=== PATIENT | female | born 1955 | race African-American/Black ===

== ENCOUNTER 2016-12-25 07:16 | Emergency (ER) | payer OTHER, MEDICARE ==
[~2016-12-25] VITALS: Ht 152.4 cm; Wt 98.4 kg
[~2016-12-25 07:16] MED LIST: ADVAIR DISKU 11 UNIT INH; ALBUTEROL0.09 MG/A1 INH; ALDACTONE50 MG PO; ASPIRIN325 M1 PO; BISACODYL10 MG PR; CARLSON VITAM2000 IU PO; CELLCEPT 250MG250 MG PO; COLACE100 MG PO; DILAUDID2 MG PO; FLEXERIL10 MG PO; FOLIC ACID 1 MG PO; GABAPENTIN100 MG PO; GAVILAX17 GM/Dose PO; HYDROCODONE/ACE1 TA1 PO; HYDROCORTISONE120 GM TOP; LASIX80 MG PO; LOPRESSOR50 MG PO; MAGNESIUM OXID400 MG PO; MIDODRINE HCL5 MG PO; MULTIVITAMIN1 TAB PO; NEXIUM 40MG40 MG PO; ONDANSETRON4 M1 PO; PREDNISONE10 MG PO; PROGRAF1 MG PO; PROMETHAZINE25 M1 PO; SENNA CON/DOCUS1 TAB PO; TOPROL XL 25MG25 MG PO; TOPROL XL25 MG PO; TRAMADOL HCL50 MG PO; VITAB121000 PO; ZYPREXA2.5 MG PO
[2016-12-25 07:19] VITALS: BP 192/106
--- NOTE | 2016-12-25 08:00 | ED EAR COMPLAINT ---
History of Present Illness General Chief Complaint: Ear Complaints Stated Complaint: RT EAR PAIN Source: patient Exam Limitations: no limitations Vital Signs & Intake/Output Vital Signs & Intake/Output ED Intake and Output 12/26 0000 12/25 1200 Intake Total 0 Output Total Balance 0 Intake, Oral 0 Patient 217 lb Weight Weight Reported by Patient Measurement Method Allergies Coded Allergies: midazolam (Severe, HALLUCINATIONS 12/25/16) diphenhydramine (Intermediate, ANXIETY 12/25/16) naproxen (Mild, GI 12/25/16) Reconcile Medications Albuterol Sulfate (Albuterol Sulfate Hfa) 90 MCG HFA.AER.AD 2 PUFF INH Q4-6 PRN PRN SHORTNESS OF BREATH (Reported) 90 MCG PER PUFF Bisacodyl 10 MG SUP 1 SUPP UT DAILY CONSTIPATION (Reported) Docusate Sodium (Colace) 100 MG CAPSULE 1 CAP PO DAILY CONSTIPATION (Reported ) Docusate Sodium/Senna (Senna S) 50 MG/8.6 MG TAB 1 TAB PO DAILY GI (Reported) Esomeprazole (Nexium) 40 MG CAPSULE.DR 1 CAP PO BID GI (Reported) Gabapentin 100 MG CAPSULE 1 CAP PO DAILY UNKNOWN (Reported) Hydrocodone/Acetaminophen (Hector 5-325 Tablet) 5 MG-325 MG TABLET 1-2 TAB PO Q6P PRN PAIN Hydrocortisone (Hydrocortisone 1% 120 Gm Cream) 1 % CREAM..G. 1 GISELLE TOP BID SKIN (Reported) apply to affected area(s) HYDROMORPHONE HCL (Dilaudid) 2 MG TAB 1 TAB PO 4 TIMES/DAY PRN PAIN FOR MODERATE TO SEVERE Magnesium Oxide 400 MG TABLET 1 TAB PO DAILY SUPPLEMENT (Reported) Metoprolol Succ XL (Toprol XL 25MG) 25 MG TAB 1 TAB PO DAILY BLOOD PRESSURE ( Reported) MIDODRINE HCL (Midodrine HCl) 5 MG TAB 3 TAB PO TID LIVER DISEASE Multivitamin (Multiple Vitamins) 1 EACH TABLET 1 TAB PO DAILY SUPPLEMENT ( Reported) Mycophenolate Mofetil (CellCept) 250 MG CAPSULE 2 CAP PO 4 TIMES/DAY TRANSPLANT (Reported) Olanzapine (Zyprexa) 2.5 MG TAB 1 TAB PO AT BEDTIME MENTAL HEALTH (Reported) Ondansetron (Ondansetron Odt) 4 MG TAB.RAPDIS 1 TAB PO Q8H PRN N/V (Reported) Polyethylene Glycol 3350 (Gavilax) 17 GRAM/DOSE POWDER 1 PAC PO DAILY GI ( Reported) Prednisone 10 MG TABLET 1 TAB PO DAILY UNKNOWN (Reported) Tacrolimus (Prograf) 1 MG CAP 5 CAP PO BID TRANSPLANT (Reported) Triage Note: PT TO ED FOR R EAR PAIN THAT STARTED THIS MORNING. DENIES DIZZINESS OR TINITUS. PT TOOK AMOXICILLIN THAT SHE HAD LEFT OVER IN THE HOUSE TO HELP. Triage Nurses Notes Reviewed? yes Onset: Abrupt Duration: hour(s):, constant, continues in ED, getting worse Severity: severe HPI: Patient presents for evaluation of severe constant throbbing right ear pain that began this morning (patient awoke with pain). She states that she has been suffering cold symptoms recently including a runny and stuffy nose. She denies any drainage from the ear or any trauma. She has had no fever. She has prior history of a tympanostomy tube placement. She tried a dose of amoxicillin she typically takes prior to dental procedures due to her history of liver and kidney transplant. Past History Travel History Traveled to [facility] past 21 day No Medical History Any Pertinent Medical History? see below for history Neurological: NEUROPATHY EENT: allergies, otitis media Cardiovascular: hypertension Respiratory: asthma Gastrointestinal: GERD, PEG TUBE Hepatic: cirrhosis, hepatitis C, LIVER TRANSPLANT - 12/2014 - [place], [place]. Renal: KIDNEY TRANSPLANT Musculoskeletal: chronic back pain, disk herniation, osteoarthritis Psychiatric: anxiety Endocrine: NONE Blood Disorders: pancytopenia Cancer(s): NONE TAP GRINDER/Reproductive: NONE History of MRSA: No History of VRE: No History of CDIFF: No Surgical History Surgical History: KIDNEY LIVER TRANSPLANT 11/21/14 in [facility] 12/2014. Psychosocial History Who do you live with Spouse Services at Home None What is your primary language Swedish Tobacco Use: Current Not Daily ETOH Use: denies use Illicit Drug Use: denies illicit drug use Family History Family History, If Any: BROTHER (oral cancer). MOTHER MOTHER (brain aneursym). FATHER (heart disease). Hx Contributory? No Review of Systems Review of Systems Constitutional: Reports: no symptoms. EENTM: Reports: see HPI. Respiratory: Reports: no symptoms. Cardiovascular: Reports: no symptoms. GI: Reports: no symptoms. Genitourinary: Reports: no symptoms. Musculoskeletal: Reports: no symptoms. Skin: Reports: no symptoms. Neurological/Psychological: Reports: no symptoms. Hematologic/Endocrine: Reports: no symptoms. Immunologic/Allergic: Reports: no symptoms. All Other Systems: Reviewed and Negative Physical Exam Physical Exam Ears: Right: Tympanic red, Tympanic bulging. Comments: Gen.: Well-nourished, well-developed, no acute respiratory distress. Moderate to severe distress secondary to ear pain. Head: Normocephalic, atraumatic. Eyes: Normal inspection bilaterally Ears: Normal inspection bilaterally, right ear: No tenderness with traction of the pinna, canal appears normal, right TM incompletely erythematous, dull and bulging, left TM: normal appearance Nose: Normal inspection Throat/mouth : Moist mucosa, no oral pharyngeal erythema Face: Mild tenderness over the right maxillary sinus to percussion, no apparent facial swelling Neck: Supple, full range of motion, no goiter Lungs: Quiet respirations Back: Normal range of motion Extremities: Normal range of motion grossly Neurologic: Cranial nerves grossly intact, speech is clear Skin: warm and dry Psychiatric: Anxious secondary to pain, cooperative, no apparent delusions or hallucinations Lymphatic: No cervical or periauricular lymphadenopathy Progress Differential Diagnoses I considered the following diagnoses in my evaluation of the patient: Otitis media, otitis externa, sinusitis, dental abscess, peritonsillar abscess, pharyngitis, viral syndrome. Given the appearance of the patient's tympanic membrane I suspect right otitis media. Patient has no fever lymphadenopathy or facial swelling to suggest locally invasive disease. Plan of Care: Current Medications Sig/Abram Start time Last Medication Dose Stop Time Status Admin Ketorolac 30 MG ONCE ONE 12/25 0800 UNVr 12/25 Tromethamine 12/25 08 0800 (Toradol) Morphine Sulfate 4 MG ONCE ONE 12/25 08 UNVr 12/25 (Morphine) 12/25 0801 0800 Initial ED EKG: none Departure Departure Disposition: HOME OR SELF CARE Condition: Stable Clinical Impression Primary Impression: Right otitis media Qualifiers: Otitis media type: unspecified Chronicity: unspecified Qualified Code: H66.91 - Otitis media, unspecified, right ear Secondary Impressions: Viral URI Referrals: MADALYN HARDY,MARCIANO Esquivel (PCP/Family) Additional Instructions: Amoxicillin as prescribed for your ear infection. Hector as needed for ear pain. Follow-up with Dr. BERGMAN tomorrow for reevaluation of her symptoms and further testing as needed. Return if any concerns or sudden worsening. Thank you for choosing the [facility] for your care. It was a pleasure to serve you today. Kristofer Madrid M.D. [facility] Departure Forms: Customer Survey General Discharge Information Prescriptions: Current Visit Scripts Hydrocodone/Acetaminophen (Hector 5-325 Tablet) 1-2 TAB PO Q6P PRN PAIN #20 TAB
[2016-12-25] MEDS ORDERED: NORCO 5-325 TA1 EACH PO (08:06)
== END 2016-12-25 08:15 ==
LOC: ERH 07:16
DX: H66.91 Otitis media, unspecified, right ear (principal); J06.9 Acute upper respiratory infection, unspecified; Z72.0 Tobacco use
CPT/HCPCS: 96372; J1885

== ENCOUNTER 2017-09-08 20:28 | Inpatient (IN) | payer OTHER, MEDICARE ==
[~2017-09-08] VITALS: Ht 162.6 cm; Wt 100.2 kg
[~2017-09-08 20:28] MED LIST changes: -CELLCEPT 250MG250 MG PO; +CELLCEPT250 MG PO; -GABAPENTIN100 MG PO; +GABAPENTIN600 M1 PO; +NORCO 5-325 TA1 EACH PO; -PREDNISONE10 MG PO; +PREDNISONE5 M1 PO
[2017-09-08 20:46] LABS: ABSOLUTE BASOPHIL COUNT 0 /CUMM (0.0-0.2); ABSOLUTE EOSINOPHIL COUNT 0.1 /CUMM (0.0-0.7); ABSOLUTE LYMPH COUNT 1.4 /CUMM (1.2-3.4); ABSOLUTE MONOCYTE COUNT 0.2 /CUMM (0.10-0.60); BASOPHIL % 0.6 % (0.0-2.0); EOSINOPHIL % 1.9 % (0-5); GRANULOCYTE % 64.1 % (42.2-75.2); HEMATOCRIT 36.4 % (37-47); MEAN CORPUSCULAR HGB 29.5 PG (27.0-31.0); MEAN CORPUSCULAR HGB CONC 32.5 G/DL (33.0-37.0); MEAN PLATELET VOLUME 7.8 FL (7.4-10.4); PLATELET COUNT 240 /CUMM (130-400); RBC DISTRIBUTION WIDTH 14.1 % (11.5-14.5); RED BLOOD CELL CT 3.99 /CUMM (4.20-5.40); WHITE BLOOD CELL COUNT 4.7 /CUMM (4.8-10.8)
--- NOTE | 2017-09-08 22:05 | ED CARDIAC/CP/PALPITATIONS ---
History of Present Illness General Chief Complaint: Palpitations Stated Complaint: AFIB Source: patient, family Exam Limitations: no limitations Allergies Coded Allergies: midazolam (Severe, HALLUCINATIONS 12/25/16) diphenhydramine (Intermediate, ANXIETY 12/25/16) naproxen (Mild, GI 12/25/16) grapefruit (MEDICATION INTERACTION 09/08/17) Reconcile Medications Albuterol Sulfate (Albuterol Sulfate Hfa) 90 MCG HFA.AER.AD 2 PUFF INH Q4-6 PRN PRN SHORTNESS OF BREATH (Reported) 90 MCG PER PUFF Bisacodyl 10 MG SUP 1 SUPP OK DAILY CONSTIPATION (Reported) Docusate Sodium (Colace) 100 MG CAPSULE 1 CAP PO DAILY CONSTIPATION (Reported ) Docusate Sodium/Senna (Senna S) 50 MG/8.6 MG TAB 1 TAB PO DAILY GI (Reported) Esomeprazole (Nexium) 40 MG CAPSULE.DR 1 CAP PO BID GI (Reported) Gabapentin 100 MG CAPSULE 1 CAP PO DAILY UNKNOWN (Reported) Hydrocodone/Acetaminophen (Benson 5-325 Tablet) 5 MG-325 MG TABLET 1-2 TAB PO Q6P PRN PAIN Hydrocortisone (Hydrocortisone 1% 120 Gm Cream) 1 % CREAM..G. 1 GISELLE TOP BID SKIN (Reported) apply to affected area(s) HYDROMORPHONE HCL (Dilaudid) 2 MG TAB 1 TAB PO 4 TIMES/DAY PRN PAIN FOR MODERATE TO SEVERE Magnesium Oxide 400 MG TABLET 1 TAB PO DAILY SUPPLEMENT (Reported) Metoprolol Succ XL (Toprol XL 25MG) 25 MG TAB 1 TAB PO DAILY BLOOD PRESSURE ( Reported) MIDODRINE HCL (Midodrine HCl) 5 MG TAB 3 TAB PO TID LIVER DISEASE Multivitamin (Multiple Vitamins) 1 EACH TABLET 1 TAB PO DAILY SUPPLEMENT ( Reported) Mycophenolate Mofetil (CellCept) 250 MG CAPSULE 2 CAP PO 4 TIMES/DAY TRANSPLANT (Reported) Olanzapine (Zyprexa) 2.5 MG TAB 1 TAB PO AT BEDTIME MENTAL HEALTH (Reported) Ondansetron (Ondansetron Odt) 4 MG TAB.RAPDIS 1 TAB PO Q8H PRN N/V (Reported) Polyethylene Glycol 3350 (Gavilax) 17 GRAM/DOSE POWDER 1 PAC PO DAILY GI ( Reported) Prednisone 10 MG TABLET 1 TAB PO DAILY UNKNOWN (Reported) Tacrolimus (Prograf) 1 MG CAP 5 CAP PO BID TRANSPLANT (Reported) Triage Note: PT TO ED C/O CENTER CHEST PAIN, NON RADIATING, WORSE WITH PALPATION, NO CHANGE WITH INSPIRATION, STARTED WHILE MAKING DINNER THIS EVENING. ALSO FELT "HEART PUNDING IN MY CHEST" PMH OF AFIB. HR 122 ON EKG. FEELS SOB WITH INSPIRATION. "I FELT DIZZY SO I HAD TO SIT DOWN" PMH OF KIDNEY AND LIVER TRANSPLANT. +SMOKER. "I TOOK A COUPLE SIPS OF MY 'S BEER THIS AFTERNOON" Triage Nurses Notes Reviewed? yes Onset: Abrupt Duration: minute(s): Timing: multiple episodes today Quality/Severity: pressure Location: central Radiation: no radiation Activities at Onset: activity Modifying Factors: Worsens With: exercise. Aspirin Today: 325 mg x 1 Associated Symptoms: dizziness, shortness of breath HPI: PATIENT IS A 62 Y/O FEMALE, PMH HEPATITIS C REQUIRING LIVER AND KIDNEY TRANSPLANT (2014), HTN, HLD, ASTHMA, AND OSTEOPOROSIS, PRESENTING FOR ONE MONTH OF DYSPNEA ON EXERTION AND CHEST PAIN. PATIENT STATES SHE IS ONLY ABLE TO WALK 15 FEET OR HALF A BLOCK BEFORE EXPERIENCING DYSPNEA AND CHEST PAIN. SHE STATES THAT THE PAIN IS LOCALIZED TO HER CHEST AND GOES AWAY AFTER TEN MINUTES OF REST. THERE IS DIZZINESS AND PALPATATIONS ASSOCIATED WITH THESE EPISODES WELL. SHE DOESNT TAKE ANY MEDICATION WHEN THESE SYMPTOMS OCCUR. SHE FEELS THESE SYMPTOMS HAVE BEEN WORSENING OVER THE LAST MONTH. PATIENT CURRENTLY REPORTS PALPITATIONS AND DENIES CHEST PAIN AND SOB AT THIS TIME. PATIENT HAD AN ECHO AND HOLTER MONITOR ONE MONTH AGO WHICH DIDNT REVEAL ANY ABNORMALITIES. SHE DENIES FEVER, CHILLS, HEADACHE, MYALGIA, N/V, DIARRHEA AND CONSTIPATION. (Suman Gillespie) Vital Signs & Intake/Output Vital Signs & Intake/Output Vital Signs Date Time Temp Pulse Resp B/P B/P Pulse O2 O2 Flow FiO2 Mean Ox Delivery Rate 09/08 2236 98.8 86 22 152/77 98 Room Air 09/08 2042 96.6 103 20 178/100 97 Room Air ([facility] HARDY,Kristofer Carrera) Past History Travel History Traveled to [place] past 21 day No Medical History Any Pertinent Medical History? see below for history Neurological: NEUROPATHY EENT: allergies, otitis media Cardiovascular: hypertension Respiratory: asthma Gastrointestinal: GERD, PEG TUBE Hepatic: cirrhosis, hepatitis C, LIVER TRANSPLANT - 12/2014 - [place]. Renal: KIDNEY TRANSPLANT Musculoskeletal: chronic back pain, disk herniation, osteoarthritis Psychiatric: anxiety Endocrine: NONE Blood Disorders: pancytopenia Cancer(s): NONE FINANCIAL INVESTMENT MANAGER/Reproductive: NONE History of MRSA: No History of VRE: No History of CDIFF: No Surgical History Surgical History: KIDNEY LIVER TRANSPLANT 11/21/14 in [facility] 12/2014. Psychosocial History Who do you live with Spouse Services at Home None What is your primary language Swedish Tobacco Use: Current Daily Use Daily Tobacco Use Amount/Type: =< 4 Cigarettes daily ETOH Use: occasional use Illicit Drug Use: denies illicit drug use Family History Comment: MULTIPLE FAMILY MEMBERS WITH A-FIB Family History, If Any: BROTHER (oral cancer). MOTHER MOTHER (brain aneursym). FATHER (heart disease). Hx Contributory? Yes (Suman Gillespie) Review of Systems Review of Systems Constitutional: Reports: no symptoms. EENTM: Reports: no symptoms. Respiratory: Reports: see HPI. Cardiovascular: Reports: see HPI. GI: Reports: no symptoms. Genitourinary: Reports: no symptoms. Musculoskeletal: Reports: no symptoms. Skin: Reports: no symptoms. Neurological/Psychological: Reports: no symptoms. Hematologic/Endocrine: Reports: no symptoms. Immunologic/Allergic: Reports: no symptoms. All Other Systems: Reviewed and Negative (Suman Gillespie) Physical Exam Physical Exam General Appearance: no apparent distress, alert, awake, comfortable, obese Head: atraumatic, normal appearance Eyes: Bilateral: normal appearance, EOMI. Ears, Nose, Throat: normal ENT inspection Neck: normal inspection Respiratory: normal breath sounds, chest non-tender, no respiratory distress, lungs clear Cardiovascular: irregularly irregular Peripheral Pulses: 2+ radial (R), 2+ radial (L) Rectal: normal exam, normal rectal tone, heme negative stool Neurologic/Psych: awake, alert, oriented x 3 Skin: intact, normal color, warm/dry Core Measures ACS in differential dx? Yes CVA/TIA Diagnosis No Sepsis Present: No Sepsis Focused Exam Completed? No (Suman Gillespie) Progress Differential Diagnosis: AMI, aortic dissection, atrial fibrillation, myocarditis , pancreatitis, pericarditis, pneumothorax, respiratory failure, unstable angina Initial ED EKG: rate (120), AFIB (Suman Gillespie) Plan of Care: Orders Procedure Date/time Status Heart Healthy Diet 09/09 B Active TROPONIN LEVEL 09/09 09 Active EKG 09/09 09 Active CBC WITHOUT DIFFERENTIAL 09/09 06 Active BASIC ELECTROLYTES PLUS BUN&CR 09/09 06 Active TROPONIN LEVEL 09/09 0300 Active EKG 09/09 0300 Active XRY-PORTABLE CHEST XRAY 09/08 225 Active Pathway - chart 09/08 2234 Active Patient Data 09/08 2234 Active Patient Data 09/08 2232 Active URINE DRUGS OF ABUSE 09/08 2225 Active ECHOCARDIOGRAM 09/08 2225 Active Add-on Test (ER Only) 09/08 2223 Active Misc Message 09/08 2214 Active ED Holding Orders 09/08 2214 Active Admit to inpatient 09/08 2214 Active Vital Signs 09/08 2214 Active Code Status 09/08 2214 Active Add-on Test (ER Only) 09/08 2211 Active Intake & Output 09/08 2056 Active Add-on Test (ER Only) 09/08 2048 Active THYROID STIMULATING HORMONE 09/08 2038 Active PARTIAL THROMBOPLASTIN TIME 09/08 2038 Complete PROTHROMBIN TIME 09/08 2038 Complete PHOSPHORUS 09/08 2038 Active FREE T4 09/08 2038 Active ETHANOL 09/08 2038 Active TROPONIN LEVEL 09/08 2036 Active MAGNESIUM 09/08 2036 Active COMPREHENSIVE METABOLIC PANEL 09/08 2036 Active CBC WITHOUT DIFFERENTIAL 09/08 2036 Complete EKG 09/08 2028 Active Pathway - chart 09/08 UNK Active House Staff 09/08 UNK Active VTE Mechanical Prophylaxis 09/08 UNK Active Vital Signs 09/08 UNK Active Telemetry/Blacking Wheel Tender 09/08 UNK Active Current Medications Sig/Abram Start time Last Medication Dose Stop Time Status Admin Magnesium Oxide 400 MG ONE ONE 09/08 2229 UNVr (Mag-Ox) 09/08 2230 Magnesium Sulfate 1 GM Q2H 09/08 2229 UNVr (Mag Sulfate in D5) 09/09 228 Dextrose/Water 100 ML (D5W) Heparin Sodium 25,000 UNIT Q24H 09/08 2214 AC (Porcine) (Heparin) Sodium Chloride 500 ML Laboratory Tests 09/08/172038: Anion Gap 14, Estimated GFR 50 L, BUN/Creatinine Ratio 26.4 H, Glucose 135 H, Calcium 10.0, Phosphorus 3.1, Magnesium 1.5 L, Total Bilirubin 0.4, AST 25, ALT 44, Alkaline Phosphatase 73, Troponin I 0.01, Total Protein 6.7, Albumin 4.6, Globulin 2.1, Albumin/Globulin Ratio 2.2, TSH Pending, Free T4 Pending, PT 11.0, INR 1.05, APTT 30, CBC w Diff MAN DIFF ORDERED, RBC 3.99 L, MCV 91.0, MCH 29.5, MCHC 32.5 L, RDW 14.1, MPV 7.8, Gran % 64.1, Lymphocytes % 29.4, Monocytes % 4.0, Eosinophils % 1.9, Basophils % 0.6, Absolute Granulocytes 3.0, Segmented Neutrophils 62, Band Neutrophils 5, Absolute Lymphocytes 1.4, Lymphocytes 26, Monocytes 2, Absolute Monocytes 0.2, Eosinophils 5, Absolute Eosinophils 0.1, Absolute Basophils 0, Platelet Estimate ADEQUATE, Normocytic RBCs VERIFIED, Normochromic RBCs VERIFIED, Serum Alcohol 24.0 ([facility] HARDY,Kristofer Carrera) Departure Departure Disposition: STILL A PATIENT Condition: Stable Clinical Impression Primary Impression: New onset a-fib Referrals: Shabnam HRADY,Junito Esquivel (PCP/Family) Departure Forms: Customer Survey General Discharge Information Admission Note Spoke With: Daya Osorio MD Documentation of Exam: Documentation of any treatments & extenuating circumstances including Concerns Regarding Discharge (functional status, medication knowledge or non-compliance, living conditions, etc.) that warrant an admission rather than observation: Patient will require rate control. Anticoagulants. Cardiac consultation. Repeat labs. Medically not safe for discharge. This is new onset A. fib. (Suman Gillespie) Critical Care Note Critical Care Note Critical Care Time: 30-74 min (35) (Suman Gillespie)
--- NOTE | 2017-09-08 22:25 | History & Physical ---
Kirby Bull MD 09/08/17 2224: General Information and HPI MD Statement: I have seen and personally examined HUGO WARREN and documented this H&P. The patient is a 62 year old F who presented with a patient stated chief complaint of [palpitations, chest pain, SOB]. 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 The symptoms began approximately 6 PM the evening of admission while the patient was cooking dinner. She describes the chest pain as a burning and pressure like pain that initially began as a moderate pain but quickly became severe as 9/10 in the substernal area radiating to the left side of the chest. Chest pain began after she started having palpitations and she also experienced shortness of breath and lightheadedness especially upon change of positions. She reports that for the past 3 months she has had intermittent episodes of palpitations approximately every other day lasting for minutes at a time and occasionally associated with milder chest pain, shortness of breath and dizziness. These episodes are usually associated with exertion and resolve upon rest. The patient has been worked up with her after school program coordinator at [place] with an echocardiogram and a Holter monitor both of which she states within normal limits. She endorses shortness of breath while lying flat but only sleeps on one pillow and attributes this shortness of breath to her asthma. Patient denies any nausea, vomiting, diaphoresis, loss of consciousness during this episode. Allergies/Medications Allergies: Coded Allergies: midazolam (Severe, HALLUCINATIONS 12/25/16) diphenhydramine (Intermediate, ANXIETY 12/25/16) naproxen (Mild, GI 12/25/16) grapefruit (MEDICATION INTERACTION 09/08/17) Home Med list Albuterol Sulfate (Albuterol Sulfate Hfa) 90 MCG HFA.AER.AD 2 PUFF INH Q4-6 PRN PRN SHORTNESS OF BREATH (Reported) 90 MCG PER PUFF Apixaban (Eliquis) 5 MG TABLET 5 MG PO BID heart .. Gabapentin 600 MG TABLET 2 TAB PO BID PRN NERVE PAIN (Reported) Gabapentin 600 MG TABLET 1 TAB PO ONCE PRN Nerve pain (Reported) Given in the afternoon Magnesium Oxide 400 MG TABLET 1 TAB PO DAILY SUPPLEMENT (Reported) Metoprolol Succ XL (Toprol Xl) 50 MG TAB 50 MG PO BID heart . Multivitamin (Multiple Vitamins) 1 EACH TABLET 1 TAB PO DAILY SUPPLEMENT ( Reported) Mycophenolate Mofetil (Cellcept) 250 MG CAPSULE 3 CAP PO BID IMMUNOSUPPRESSION (Reported) Polyethylene Glycol 3350 (Gavilax) 17 GRAM/DOSE POWDER 1 PAC PO DAILY GI ( Reported) Prednisone 5 MG TABLET 1 TAB PO DAILY IMMUNORSUPPRESSION (Reported) Tacrolimus 1 MG CAPSULE 3 CAP PO BID POST-TRANSPLANT (Reported) Past History Travel History Traveled to [facility] past 21 day No Medical History Neurological: NEUROPATHY EENT: allergies, otitis media Cardiovascular: hypertension Respiratory: asthma Gastrointestinal: GERD, PEG TUBE Hepatic: cirrhosis, hepatitis C, LIVER TRANSPLANT - 12/2014 - [place], [place]. Renal: KIDNEY TRANSPLANT Musculoskeletal: chronic back pain, disk herniation, osteoarthritis Psychiatric: anxiety Endocrine: NONE Blood Disorders: pancytopenia Cancer(s): NONE PILE DRIVER OPERATOR/Reproductive: NONE History of MRSA: No History of VRE: No History of CDIFF: No Surgical History Surgical History: KIDNEY LIVER TRANSPLANT 11/21/14 in [facility] 12/2014. Past Family/Social History Family History Relations & Conditions if any BROTHER (oral cancer). MOTHER MOTHER (brain aneursym). FATHER (heart disease). Psychosocial History Who Do You Live With? spouse, child Services at Home: daughter who is a nurse helps with her meds Primary Language: Latvian Smoking Status: Current Everyday Smoker (4-5 cigs/day for 30 years) ETOH Use: occasional use Illicit Drug Use: denies illicit drug use Living Will? unknown Power of Accounts Receivable Coordinator/HCP? unknown Functional Ability ADLs Independent: eating, toileting, bathing. Ambulation: independent IADLs Independent: shopping, housework, finances, food prep, telephone, transportation. Needs Assist: medication admin. Review of Systems Review of Systems Constitutional: Denies: chills, diaphoresis, fever, malaise. EENTM: Reports: blurred vision (3 week duration). Denies: double vision, visual changes. Cardiovascular: Reports: chest pain. Respiratory: Reports: orthopnea, short of breath. Denies: cough, sputum production, wheezing. GI: Denies: abdominal pain, constipation, diarrhea, melena, nausea, bloody stool, vomiting. Genitourinary: Reports: no symptoms. Musculoskeletal: Reports: joint pain (OA). Skin: Reports: no symptoms. Neurological/Psychological: Reports: tingling (hx of neuropathy ). Exam & Diagnostic Data Last 24 Hrs of Vital Signs/I&O Vital Signs Date Time Temp Pulse Resp B/P B/P Pulse O2 O2 Flow FiO2 Mean Ox Delivery Rate 09/09 0055 98.7 82 22 135/85 94 Room Air 09/08 2330 103 152/77 09/08 2237 98.8 86 22 152/77 98 Room Air 09/08 2042 96.6 103 20 178/100 97 Room Air Intake & Output 09/09 0800 09/09 0000 09/08 1600 Intake Total 0 Output Total Balance 0 Intake, Oral 0 Patient 221 lb Weight Physical Exam General Appearance Alert, Oriented X3, Cooperative, No Acute Distress Skin Temp/Moisture Exam: Warm/Dry Neck No JVD Cardiovascular Normal S1, Normal S2, irregularly irregular rhythm, tachycardic HR 110s, chest pain is reproducible with palpation Lungs Clear to Auscultation, Normal Air Movement Abdomen Normal Bowel Sounds, Soft, No Tenderness Neurological Normal Speech, Strength at 5/5 X4 Ext, Normal Tone, Sensation Intact, Cranial Nerves 3-12 NL Extremities No Clubbing, No Cyanosis, No Edema Vascular Pulses Symmetrical Last 24 Hrs of Labs/Bill: Laboratory Tests 09/08/172038: Anion Gap 14, Estimated GFR 50 L, BUN/Creatinine Ratio 26.4 H, Glucose 135 H, Calcium 10.0, Phosphorus 3.1, Magnesium 1.5 L, Total Bilirubin 0.4, AST 25, ALT 44, Alkaline Phosphatase 73, Troponin I 0.01, C-Reactive Prot, Quant < 0.5, Total Protein 6.7, Albumin 4.6, Globulin 2.1, Albumin/Globulin Ratio 2.2, Lipase 54, TSH 1.490, Free T4 0.86, PT 11.0, INR 1.05, APTT 30, CBC w Diff MAN DIFF ORDERED, RBC 3.99 L, MCV 91.0, MCH 29.5, MCHC 32.5 L, RDW 14.1, MPV 7.8, Gran % 64.1, Lymphocytes % 29.4, Monocytes % 4.0, Eosinophils % 1.9, Basophils % 0.6, Absolute Granulocytes 3.0, Segmented Neutrophils 62, Band Neutrophils 5, Absolute Lymphocytes 1.4, Lymphocytes 26, Monocytes 2, Absolute Monocytes 0.2, Eosinophils 5, Absolute Eosinophils 0.1, Absolute Basophils 0, Platelet Estimate ADEQUATE, Normocytic RBCs VERIFIED, Normochromic RBCs VERIFIED, ESR Westergren Pending, Serum Alcohol 24.0 Diagnostic Data EKG Results A fib, HR 112, QTc 433 CXR Results Unremarkable examination. Assessment/Plan Assessment: Patient is a 62-year-old -[place]ian female with a past medical history significant for 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 Patient was found to be in A. fib on EKG, chest pain is reproducible described as a burning, pressure-like pain. She has no signs of fluid overload including leg swelling, JVD, pulmonary vascular congestion. VS on admission: T 96.6, HR 103, RR 20, BP 178/100 (trended down to 135/85), saturating 97% on room air Labs on admission: WBC 4.7, H/H 11.8/36.4, platelet count 240, sodium 142, potassium 4.6, chloride 109, CO2 20, BUN 29, CR 1.1, glucose 135, magnesium 1.5, phosphorus 3.1, TSH 1.49, free T4 0.86, lipase 54, serum alcohol 24, trop < 0.01 Problem list #A. fib rate controlled, possibly related to holiday heart syndrome #Hypomagnesemia #History of renal and liver transplant on immunosuppression, nicotine dependence , asthma, HTN, hypothyroidism Plan -Admit to telemetry -Continuous telemetry monitoring -Echocardiogram -Patient initially requested Dr. Rowe for cardiology consult he was unable to be reached and Dr. Henson was called from ED -IV heparin, patient guaiac-negative in ED -Rule out for ACS with serial troponin and EKG -Magnesium repleted in ED, follow-up a.m. level -Orthostatic vital signs -Lipase and TSH/T4 within normal limits -Continue home medications including tacrolimus, mycophenolate, prednisone, metoprolol, Synthroid, tramadol, gabapentin -Heart healthy diet -DVT prophylaxis: IV heparin and ALPS -CODE STATUS: Full code As Ranked By This Provider Problem List: 1. New onset a-fib 2. Hypomagnesemia Core Measures/Misc (04/19) Acute Coronary Syndrome ACS Diagnosis: No Congestive Heart Failure Congestive Heart Failure Diagnosis No Cerebrovascular Accident CVA/TIA Diagnosis: No VTE (View Protocol) VTE Risk Factors Smoker No Mechanical VTE Prophylaxis d/t N/A MechProphylax Ordered No VTE Pharm Prophylaxis d/t NA PharmProphylax ordered Sepsis (View protocol) Sepsis Present: No Cirilo Cameron MD 09/08/17 2229: Resident Review Statement Resident Statement: examined this patient, discussed with internal control consultant, agreed with internal control consultant Other Findings: Ms Warren is a 62-year-old -[place]ian female with history of hypertension , asthma, stable GERD, chronic back pain, DJD, history of pancytopenia, smoker, with past history of hepatitis C cirrhosis (?resolution) presented to the emergency department on 09/08/2016 complaining of chest pain. Patient states that she was in her normal state of health until approximately 6 PM when she was cooking dinner developed her symptoms. Patient states that her chest pain was rated at a 9 out of 10 in severity and subsequently came down to an 8 out of 10 in severity. Prior to coming during this episode the patient's daughter (who is a nurse in [place]) checked her pulse and subsequently made the decision for her to be brought into the emergency department. Patient also states that over the last few months she has been experiencing intermittent palpitations. These episodes last minutes and are worse with exertion. She also takes endorses lightheadedness. States that she has followed up with a after school program coordinator at [place]. Patient did have a birthday and an anniversary yesterdayand had gone out to celebrate. Right coming in the patient also stated that she had a few sips of the 's beer. R: Patient denies any fever, chills, nausea, vomiting. She does endorse palpitations and lightheadedness. She also endorses joint pain. E: T:96.6. Respirations 20. Blood pressure 178/100. Heart rate 103. HEENT: Pupils equally round and reactive to light and accommodation. Nose is atraumatic. External auditory canal and Tympanic membranes clear. Pharynx normal. No swelling or edema. Facial mask on. Neck: Normal inspection, full range of motion. Back: Nontender Cardiovascular: Irregularly irregular rate. No murmurs rubs or gallops, normal JVP. Pain on chest wall palpation. Respiratory: Chest nontender. No respiratory distress. Abdomen: Soft, obese, nontender nondistended, no appreciable organomegaly. Normal bowel sounds. Extremity: No edema noted. Neuro: Alert oriented x3, motor sensory normal, cranial nerves II through XII grossly intact. Skin: No appreciable rash on exposed skin, skin is warm and dry. Psych: Mood and affect is normal, memory and judgment is normal. Appears slighty intoxicated, from the scent in the room. , daughter and Grandaughter were present during clinical encounter. L sodium 142, potassium 4.6, chloride 109,20. BUN 29. Creatinine 1.1. Initial Troponin WNL I SERVICE DATE: 09/08/17 EXAM TYPE: RAD - XRY-PORTABLE CHEST XRAY IMPRESSION: Unremarkable examination. EKG:Atrial Fibrillation Rate 122 A/P Ms Warren is a 62-year-old -[place]ian female with history of hypertension , asthma, stable GERD, chronic back pain, DJD, history of pancytopenia, smoker, with past history of hepatitis C cirrhosis (?resolution) presented to the emergency department on 09/08/2016 complaining of chest pain. In the ED, a Chest x-ray was done to rule out pneumonia. #New Onset A.Fib likely due to recent alcohol ingestion. #Chest Pain rule out ACS. #Hypertensive Urgency #History of Liver and Renal transplants #Hypomagensemia Admit the patient to telemetry for closer monitoring. Continue patient on IV heparin. Echocardiogram in a.m. Cardiology consultation with Dr. Rowe (patient request) Serial troponins and EKG. Top up electrolytes to ensure magnesium as a level of 2.0. Thyroid function studies. Lipase, ESR, CRP. Continue home medications particularly immunosuppressants. Patient is on a heart healthy diet. Full code DVT prophylaxis IV heparin and Alps. If pressures remain elevated, may consider addition of antihypertensive. Daya Osorio 09/09/17 0601: Attending Review Statement Attending Statement Attending MD Statement: examined this patient, discuss w/resident/PA/CATH LAB TECH, agreed w/resident/PA/CATH LAB TECH, reviewed EMR data (avail), reviewed images, amended to note Attending Assessment/Plan: CC: Chest pain, shortness of breath and palpitation PMH: Liver and kidney transplant secondary to hep C, L2 compression fracture, asthma, neuropathy, HLD, HTN Patient is a very good historian. She came to ER for acute onset chest pain/ chest tightness, shortness of breath and palpitation. Chest pain is left-sided, burning/pressure like, not radiating to jaw or shoulder, not associated with nausea, vomiting, diaphoresis. But it is associated with shortness of breath, most likely dyspnea on exertion. She felt severe palpitations and lightheadedness so she immediately came to ER. Denies any fever, chills, flulike symptoms, diarrhea, cough or expectoration but she drank alcohol yesterday for her 30th anniversary and birthday. Patient states that since last 3 months she has been noticing on and off palpitations as if something is flickering in her chest, has dyspnea on exertion and on and off chest pain on exertion, had been following with her after school program coordinator at [place], was investigated with 2-D echocardiogram in August (never heard back about the results assuming everything normal), Holter monitor for 24 hours without significant detected arrhythmia. Vitals: Afebrile, pulse ranging from 80 to 100s, RR 22, blood pressure 178/100 on arrival improved to 152/77, saturating 98% on room air On exam: A O 3, cooperative, no acute distress, neck supple, JVD normal, no lymphadenopathy, mucosa moist, no focal neurological deficit, right lower extremity mildly enlarged and left lower extremity, no obvious skin rashes or inflammation CVS: S1-S2, irregular, reproducible pain on chest. RS: Clear to auscultate bilaterally. Abdomen: Soft, NT, ND, bowel sounds present. Labs: WBC 4.7, hemoglobin 11.8, hematocrit 36.4, platelet 240, sodium 142, potassium 4.6, chloride 109, bicarbonate 20, anion gap 14, BUN 29, creatinine 1.1, LFT unremarkable, troponin 0.01, serum alcohol 24, INR 1.05 CXR:Unremarkable examination. ECG: A. fib, rate controlled Assessment and plan 62-year-old female with extensive past medical history presented in ER for acute worsening of shortness of breath, chest pain and palpitations. Since last 3 months she has been having on and off palpitations and was thoroughly investigated as mentioned above. But today in ER she is found to have new onset A. fib. Never had a history of CAD, heart failure. No recent infections but she had alcohol yesterday, which may have precipitated A. fib. Patient was given a dose of metoprolol in ER and was started on heparin. Cardiology was informed. Patient requests to be seen by Dr. Rowe. + New-onset A. fib + Hypomagnesemia + Liver and kidney transplant secondary to hep C, L2 compression fracture, asthma, neuropathy, HLD, HTN - Admit to telemetry - Continuous telemetry monitoring - Serial troponin and EKGs - Continue IV heparin - 2-D echo in a.m. - Obtain records from patient's after school program coordinator - Continue metoprolol - Check lipase - Cardiology consult - Continue all her home medications - Replace electrolytes - Continue all her home medications - Replace electrolytes
[2017-09-08 22:29] LABS: PTT 30 SEC (25-37)
[2017-09-08] MEDS ORDERED: PROGRAF1 M1 PO (23:09)
[2017-09-08] MEDS ORDERED: TOPROL XL25 M1 PO (23:17)
--- NOTE | 2017-09-09 00:05 | RADIOLOGY REPORT ---
EXAMINATION: XR PORTABLE CHEST CLINICAL INFORMATION: Shortness of breath. COMPARISON: Chest, 07/24/2017 TECHNIQUE: Portable frontal view of the chest was obtained. 11:29 PM FINDINGS: No significant abnormality is noted involving the heart, lungs, mediastinum, bony thorax or soft tissues. Orthopedic plate and screw at lower cervical spine. IMPRESSION: Unremarkable examination.
[2017-09-09] MEDS ORDERED: GABAPENTIN600 M1 PO (02:44)
[2017-09-09 05:37] LABS: ABSOLUTE BASOPHIL COUNT 0 /CUMM (0.0-0.2); ABSOLUTE EOSINOPHIL COUNT 0.1 /CUMM (0.0-0.7); ABSOLUTE GRANULOCYTE CT 2.6 /CUMM (1.4-6.5); ABSOLUTE LYMPH COUNT 1.9 /CUMM (1.2-3.4); ABSOLUTE MONOCYTE COUNT 0.3 /CUMM (0.10-0.60); BASOPHIL % 0.4 % (0.0-2.0); EOSINOPHIL % 2.4 % (0-5); GRANULOCYTE % 52.1 % (42.2-75.2); HEMATOCRIT 32.3 % (37-47); MEAN CORPUSCULAR HGB 29.5 PG (27.0-31.0); MEAN CORPUSCULAR HGB CONC 32.3 G/DL (33.0-37.0); MEAN CORPUSCULAR VOLUME 91.4 FL (81.0-99.0); MEAN PLATELET VOLUME 8.1 FL (7.4-10.4); PLATELET COUNT 212 /CUMM (130-400); RBC DISTRIBUTION WIDTH 14.5 % (11.5-14.5); RED BLOOD CELL CT 3.54 /CUMM (4.20-5.40)
--- NOTE | 2017-09-09 06:02 | Admission Certification ---
Admission Certification Certification Statement - As attending physician, I certify that at the time of - admission, based on clinical presentation, severity of - symptoms, need for further diagnostic testing and - therapeutic interventions, and risk of adverse outcomes - without in-hospital treatment, in my clinical assessment, - this patient requires an acute hospital stay for a minimum - of two nights or longer. I have also considered psychsocial - factors such as support system, advanced age, financial - issues, cognitive issues, and failed out-patient treatments, - past re-admission history, safety of patient, and lack of - compliance as applicable. Specific rationale supporting this admission is: New onset A. fib
[2017-09-09 06:46] LABS: PTT > 120 SEC (25-37)
[2017-09-09 07:08] VITALS: BP 130/62
--- NOTE | 2017-09-09 07:54 | PN- Housestaff ---
Sarai Thomson MD 09/09/17 0754: Subjective Follow-up For: Atrial fibrillation Complaints: no complaints Tele-Events Since Last Visit: Sinus rhythm 70 Subjective: Patient was seen and examined at bedside. No overnight events. No complaints. She denies chest pain, chest pressure, palpitation, nausea, vomiting. Review of Systems Constitutional: Reports: no symptoms. Cardiovascular: Reports: no symptoms. Respiratory: Reports: no symptoms. Gastrointestinal: Reports: no symptoms. Genitourinary: Reports: no symptoms. Musculoskeletal: Reports: no symptoms. Skin: Reports: no symptoms. Objective Last 24 Hrs of Vital Signs/I&O Vital Signs Date Time Temp Pulse Resp B/P B/P Pulse O2 O2 Flow FiO2 Mean Ox Delivery Rate 09/09 1120 98.1 80 16 136/78 09/09 1033 Room Air Room Air 09/09 0708 98.7 63 20 130/62 93 Room Air 09/09 0055 98.7 82 22 135/85 94 Room Air 09/08 2330 103 152/77 09/08 2237 98.8 86 22 152/77 98 Room Air 09/08 2043 96.6 103 20 178/100 97 Room Air Intake & Output 09/09 1600 09/09 0800 09/09 0000 Intake Total 358 0 Output Total Balance 358 0 Intake, IV 258 Intake, Oral 100 0 Patient 221 lb 221 lb Weight Weight Reported by Patient Measurement Method Physical Exam General Appearance: Alert, No Acute Distress Cardiovascular: Regular Rate, Normal S1, Normal S2, No Murmurs Lungs: Clear to Auscultation Abdomen: Normal Bowel Sounds, Soft, No Tenderness Neurological: Normal Speech, Strength at 5/5 X4 Ext, Normal Tone, Sensation Intact Extremities: No Edema, Normal Pulses Current Medications: Current Medications Sig/Abram Start time Last Medication Dose Route Stop Time Status Admin Albuterol Sulfate 2 PUF Q4-6 PRN PRN 09/08 2314 AC INH Gabapentin 600 MG Q8 PRN 09/08 231 AC PO Heparin Sodium 0 .STK-MED ONE 09/080 DC (Porcine) .ROUTE Heparin Sodium 0 .STK-MED ONE 09/08 2239 DC (Porcine) .ROUTE Heparin Sodium 4,000 UNIT ONCE ONE 09/08 2214 DC 09/08 (Porcine) IV 09/08 2216 2254 Heparin Sodium 25,000 UNIT Q24H 09/08 2214 AC 09/08 (Porcine) IV 2254 Sodium Chloride 500 ML Magnesium Oxide 400 MG DAILY 09/09 1000 AC 09/09 PO 1121 Magnesium Oxide 400 MG ONE ONE 09/08 2230 DC 09/08 PO 09/08 2231 2254 Magnesium Sulfate 1 GM Q2H 09/08 2230 DC 09/09 Dextrose/Water 100 ML IV 09/09 022 0057 Melatonin 9 MG QPM 09/09 0200 AC 09/09 PO 0200 Metoprolol Succinate 25 MG BID 09/09 1000 AC 09/09 PO 1120 Metoprolol Succinate 25 MG ONCE ONE 09/08 2214 DC 09/08 PO 09/08 2216 2330 Mycophenolate Mofetil 750 MG BID 09/09 1000 AC 09/09 PO 1122 Prednisone 5 MG DAILY 09/09 1000 AC 09/09 PO 1121 Tacrolimus 3 MG BID 09/09 1000 AC 09/09 PO 1122 Tramadol HCl 0 .STK-MED ONE 09/08 2350 DC PO Tramadol HCl 100 MG BID 09/08 2330 AC 09/09 PO 1119 Last 24 Hrs of Lab/Bill Results Last 24 Hrs of Labs/Mics: Laboratory Tests 09/09/17 1212: APTT Pending 09/09/17 1105: Troponin I < 0.01 09/09/17 0500: Anion Gap 10, Estimated GFR 56 L, BUN/Creatinine Ratio 30.0 H, Magnesium 2.4 H, APTT > 120 *H, CBC w Diff MAN DIFF ORDERED, RBC 3.54 L, MCV 91.4, MCH 29.5, MCHC 32.3 L, RDW 14.5, MPV 8.1, Gran % 52.1, Lymphocytes % 38.6, Monocytes % 6.5, Eosinophils % 2.4, Basophils % 0.4, Absolute Granulocytes 2.6, Segmented Neutrophils 42 L, Band Neutrophils 1, Absolute Lymphocytes 1.9, Lymphocytes 50, Monocytes 4, Absolute Monocytes 0.3, Eosinophils 3, Absolute Eosinophils 0.1, Absolute Basophils 0, Platelet Estimate ADEQUATE, Normocytic RBCs VERIFIED, Normochromic RBCs VERIFIED 09/09/17 0330: APTT Cancelled 09/09/17 0245: Troponin I 0.02 09/08/172038: Anion Gap 14, Estimated GFR 50 L, BUN/Creatinine Ratio 26.4 H, Glucose 135 H, Calcium 10.0, Phosphorus 3.1, Magnesium 1.5 L, Total Bilirubin 0.4, AST 25, ALT 44, Alkaline Phosphatase 73, Troponin I 0.01, C-Reactive Prot, Quant < 0.5, Total Protein 6.7, Albumin 4.6, Globulin 2.1, Albumin/Globulin Ratio 2.2, Lipase 54, TSH 1.490, Free T4 0.86, PT 11.0, INR 1.05, APTT 30, CBC w Diff MAN DIFF ORDERED, RBC 3.99 L, MCV 91.0, MCH 29.5, MCHC 32.5 L, RDW 14.1, MPV 7.8, Gran % 64.1, Lymphocytes % 29.4, Monocytes % 4.0, Eosinophils % 1.9, Basophils % 0.6, Absolute Granulocytes 3.0, Segmented Neutrophils 62, Band Neutrophils 5, Absolute Lymphocytes 1.4, Lymphocytes 26, Monocytes 2, Absolute Monocytes 0.2, Eosinophils 5, Absolute Eosinophils 0.1, Absolute Basophils 0, Platelet Estimate ADEQUATE, Normocytic RBCs VERIFIED, Normochromic RBCs VERIFIED, ESR Westergren 8 , Serum Alcohol 24.0 Assessment/Plan Assessment: Patient is a 62-year-old -Nigerian female with a past medical history significant for 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 Patient was found to be in A. fib on EKG, chest pain is reproducible described as a burning, pressure-like pain. She has no signs of fluid overload including leg swelling, JVD, pulmonary vascular congestion. Problem list #A. 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 Patient is on IV heparin and we will continue the same. We will get an cardiology consult. Patient is requesting to be seen by Kory Rowe MD. Hypomagnesemia had a magnesium level of 1.3 upon admission and it was replaced. Repeat magnesium is 2.4. Renal and liver transplant in 2015 We will continue tacrolimus, mycophenolate mofetil and steroids. Nicotine dependence, asthma, hypertension We will continue her home medication metoprolol XL, gabapentin. If needed we will start her on nicotine patch. We will continue albuterol for asthma. Diet-heart healthy diet Plan-she will be followed by cardiology today. Problem List: 1. New onset a-fib Pain Ratin Pain Location: none Pain Goal: Remain pain free Pain Plan: tylenol Tomorrow's Labs & Rationales: bep,mag Shefali HARDY,Kavin 09/09/17 1426: Attending MD Review Statement Attending Statement Attending MD Statement: examined this patient, discuss w/resident/PA/WHEAT WASHER, agreed w/resident/PA/WHEAT WASHER, reviewed EMR data (avail), discussed with nursing, discussed with case mgmt, amended to note Attending Assessment/Plan: Patient seen and examined. Resting comfortably and not in any acute distress. She had presented with complaints of chest pain or shortness of breath. She was found to be in atrial fibrillation with rapid ventricular response. She has currently converted back to normal sinus rhythm. She is asymptomatic. She is hemodynamically stable. Echocardiogram shows normal ejection fraction and normal diastolic function. Cardiology follow-up appreciated. We will transition patient to Eliquis. We will continue rate control therapy with metoprolol as recommended. Continue Tacrolimus and CellCept. Patient remains in normal sinus rhythm overnight she will be discharged home with outpatient cardiology follow-up.
--- NOTE | 2017-09-09 13:35 | Cons- Cardiology ---
General Information and HPI Consulting Request Date of Consult: 09/09/17 Requested By: Kavin Meehan MD Reason for Consult: Paroxysmal atrial fibrillation. Source of Information: patient, old records Exam Limitations: no limitations History of Present Illness: Hugo Warren is a 62-year-old -Sudanese female, a retired [employer] employee. She has a history of hypertension on beta blockers alone. She has a history of liver and kidney transplant in 2015 for hepatitis C. She's had no cardiac issues. A few months ago she had an episode of palpitations which lasted about one hour. She saw her regular accounting associate, Dr. Ibrahima Doll in [place], who did an echocardiogram and a Holter on her and apparently there were no major adverse findings. She was then well until last night about 6:00, when she was cooking she developed shortness of breath and palpitations. These did not resolve within an hour or 2 and her daughter who is a nurse brought her to the emergency department, where she was found to be in atrial fibrillation with a rate around 122. She was started on IV heparin and transferred to the floor. Around 2 AM she apparently converted to sinus rhythm and has been in sinus rhythm since that time. Her EKG now shows just some nonspecific ST-T wave abnormalities. The patient does not describe exertional chest pain. She does have some mild dyspnea on more than usual exertion. She has no orthopnea, PND, dizziness, syncope, edema. Her home medications include only metoprolol from a cardiac standpoint. She is on immunosuppressive therapy for her transplants including low-dose prednisone. Allergies/Medications Allergies: Coded Allergies: midazolam (Severe, HALLUCINATIONS 12/25/16) diphenhydramine (Intermediate, ANXIETY 12/25/16) naproxen (Mild, GI 12/25/16) grapefruit (MEDICATION INTERACTION 09/08/17) Home Med List: Albuterol Sulfate (Albuterol Sulfate Hfa) 90 MCG HFA.AER.AD 2 PUFF INH Q4-6 PRN PRN SHORTNESS OF BREATH (Reported) 90 MCG PER PUFF Apixaban (Eliquis) 5 MG TABLET 5 MG PO BID heart . Gabapentin 600 MG TABLET 2 TAB PO BID PRN NERVE PAIN (Reported) Gabapentin 600 MG TABLET 1 TAB PO ONCE PRN Nerve pain (Reported) Given in the afternoon Magnesium Oxide 400 MG TABLET 1 TAB PO DAILY SUPPLEMENT (Reported) Metoprolol Succ XL (Toprol Xl) 50 MG TAB 50 MG PO BID heart . Multivitamin (Multiple Vitamins) 1 EACH TABLET 1 TAB PO DAILY SUPPLEMENT ( Reported) Mycophenolate Mofetil (Cellcept) 250 MG CAPSULE 3 CAP PO BID IMMUNOSUPPRESSION (Reported) Polyethylene Glycol 3350 (Gavilax) 17 GRAM/DOSE POWDER 1 PAC PO DAILY GI ( Reported) Prednisone 5 MG TABLET 1 TAB PO DAILY IMMUNORSUPPRESSION (Reported) Tacrolimus 1 MG CAPSULE 3 CAP PO BID POST-TRANSPLANT (Reported) Current Medications: Current Medications Sig/Abram Start time Last Medication Dose Route Stop Time Status Admin Albuterol Sulfate 2 PUF Q4-6 PRN PRN 09/08 2315 AC INH Gabapentin 600 MG Q8 PRN 09/08 2315 AC PO Heparin Sodium 0 .STK-MED ONE 09/08 2240 DC (Porcine) .ROUTE Heparin Sodium 0 .STK-MED ONE 09/08 2239 DC (Porcine) .ROUTE Heparin Sodium 4,000 UNIT ONCE ONE 09/08 2214 DC 09/08 (Porcine) IV 09/08 221 2254 Heparin Sodium 25,000 UNIT Q24H 09/08 2215 AC 09/08 (Porcine) IV 2254 Sodium Chloride 500 ML Magnesium Oxide 400 MG DAILY 09/09 1000 AC 09/09 PO 1121 Magnesium Oxide 400 MG ONE ONE 09/08 2230 DC 09/08 PO 09/08 2231 2254 Magnesium Sulfate 1 GM Q2H 09/08 2230 DC 09/09 Dextrose/Water 100 ML IV 09/09 0229 0057 Melatonin 9 MG QPM 09/09 0200 AC 09/09 PO 0200 Metoprolol Succinate 25 MG BID 09/09 1000 AC 09/09 PO 1120 Metoprolol Succinate 25 MG ONCE ONE 09/08 2215 DC 09/08 PO 09/08 2216 2330 Mycophenolate Mofetil 750 MG BID 09/09 1000 AC 09/09 PO 1122 Prednisone 5 MG DAILY 09/09 1000 AC 09/09 PO 1121 Tacrolimus 3 MG BID 09/09 1000 AC 09/09 PO 1122 Tramadol HCl 0 .STK-MED ONE 09/08 2350 DC PO Tramadol HCl 100 MG BID 09/08 2330 AC 09/09 PO 1119 Review of Systems Review of Systems: She has no other complaints in the review of systems Past History Travel History Traveled to [place] past 21 day No Medical History Blood Transfusion Hx: Yes Neurological: NEUROPATHY EENT: allergies, otitis media Cardiovascular: hypertension Respiratory: asthma Gastrointestinal: GERD, PEG TUBE Hepatic: cirrhosis, hepatitis C, LIVER TRANSPLANT - 12/2014 - [place]. Renal: KIDNEY TRANSPLANT Musculoskeletal: chronic back pain, disk herniation, osteoarthritis Psychiatric: anxiety Endocrine: NONE Blood Disorders: pancytopenia Cancer(s): NONE STITCHING DEPARTMENT SUPERVISOR/Reproductive: NONE Surgical History Surgical History: KIDNEY LIVER TRANSPLANT 11/21/14 in [facility] 12/2014. Family History Relations & Conditions If Any: BROTHER (oral cancer). MOTHER MOTHER (brain aneursym). FATHER (heart disease). Psychosocial History Where Do You Live? Home Who Do You Live With? spouse, child Services at Home: daughter who is a nurse helps with her meds Primary Language: Colombian Smoking Status: Current Everyday Smoker (4-5 cigs/day for 30 years) ETOH Use: occasional use Illicit Drug Use: denies illicit drug use Living Will? unknown Power of Product Safety Manager/HCP? unknown Functional Ability ADLs Independent: eating, toileting, bathing. Ambulation: independent IADLs Independent: shopping, housework, finances, food prep, telephone, transportation. Needs Assist: medication admin. Exam & Diagnostic Data Vital Signs and I&O Vital Signs Date Time Temp Pulse Resp B/P B/P Pulse O2 O2 Flow FiO2 Mean Ox Delivery Rate 09/09 1120 98.1 80 16 136/78 09/09 1033 Room Air Room Air 09/09 0708 98.7 63 20 130/62 93 Room Air 09/09 0055 98.7 82 22 135/85 94 Room Air 09/08 2330 103 152/77 09/08 2237 98.8 86 22 152/77 98 Room Air 09/08 2043 96.6 103 20 178/100 97 Room Air Intake & Output 09/09 1600 09/09 0809/09 0000 09/08 1600 09/08 0800 09/08 0000 Intake Total 358 0 Output Total Balance 358 0 Intake, IV 258 Intake, Oral 100 0 Patient 221 lb 221 lb Weight Weight Reported by Patient Measurement Method Physical Exam: This is an obese middle-aged female in no acute distress HEENT exam is normal Neck veins not distended Carotids normal without bruits Chest clear Heart regular rhythm, grade 2 to 3/6 systolic ejection murmur at the base radiating to the neck Abdomen benign Extremities good pulses no edema Labs/Bill Results: Laboratory Tests 09/09 09/09 09/09 1212 1105 0500 Chemistry Sodium (137 - 145 mmol/L) 140 Potassium (3.5 - 5.1 mmol/L) 4.2 Chloride (98 - 107 mmol/L) 108 H Carbon Dioxide (22 - 30 mmol/L) 22 Anion Gap (5 - 16) 10 BUN (7 - 17 mg/dL) 30 H Creatinine (0.5 - 1.0 mg/dL) 1.0 Estimated GFR (>60 ml/min) 56 L BUN/Creatinine Ratio (7 - 25 %) 30.0 H Magnesium (1.6 - 2.3 mg/dL) 2.4 H Troponin I (< 0.11 ng/ml) < 0.01 Coagulation APTT (25 - 37 SEC) Pending > 120 *H Hematology CBC w Diff MAN DIFF ORDERED WBC (4.8 - 10.8 /CUMM) 5.0 RBC (4.20 - 5.40 /CUMM) 3.54 L Hgb (12.0 - 16.0 G/DL) 10.4 L Hct (37 - 47 %) 32.3 L MCV (81.0 - 99.0 FL) 91.4 MCH (27.0 - 31.0 PG) 29.5 MCHC (33.0 - 37.0 G/DL) 32.3 L RDW (11.5 - 14.5 %) 14.5 Plt Count (130 - 400 /CUMM) 212 MPV (7.4 - 10.4 FL) 8.1 Gran % (42.2 - 75.2 %) 52.1 Lymphocytes % (20.5 - 51.1 %) 38.6 Monocytes % (1.7 - 9.3 %) 6.5 Eosinophils % (0 - 5 %) 2.4 Basophils % (0.0 - 2.0 %) 0.4 Absolute Granulocytes (1.4 - 6.5 /CUMM) 2.6 Segmented Neutrophils (42.2 - 75.2 %) 42 L Band Neutrophils (0.0 - 5.0 %) 1 Absolute Lymphocytes (1.2 - 3.4 /CUMM) 1.9 Lymphocytes (20.5 - 51.1 %) 50 Monocytes (1.7 - 9.3 %) 4 Absolute Monocytes (0.10 - 0.60 /CUMM) 0.3 Eosinophils (0 - 5.0 %) 3 Absolute Eosinophils (0.0 - 0.7 /CUMM) 0.1 Absolute Basophils (0.0 - 0.2 /CUMM) 0 Platelet Estimate (ADEQUATE) ADEQUATE Normocytic RBCs VERIFIED Normochromic RBCs VERIFIED 09/09 09/09 09/08 0330 9568 7 Chemistry Sodium (137 - 145 mmol/L) 142 Potassium (3.5 - 5.1 mmol/L) 4.6 Chloride (98 - 107 mmol/L) 109 H Carbon Dioxide (22 - 30 mmol/L) 20 L Anion Gap (5 - 16) 14 BUN (7 - 17 mg/dL) 29 H Creatinine (0.5 - 1.0 mg/dL) 1.1 H Estimated GFR (>60 ml/min) 50 L BUN/Creatinine Ratio (7 - 25 %) 26.4 H Glucose (65 - 99 mg/dL) 135 H Calcium (8.4 - 10.2 mg/dL) 10.0 Phosphorus (2.5 - 4.5 mg/dL) 3.1 Magnesium (1.6 - 2.3 mg/dL) 1.5 L Total Bilirubin (0.2 - 1.3 mg/dL) 0.4 AST (14 - 36 U/L) 25 ALT (9 - 52 U/L) 44 Alkaline Phosphatase (<127 U/L) 73 Troponin I (< 0.11 ng/ml) 0.02 0.01 C-Reactive Prot, Quant (<1.0 mg/dL) < 0.5 Total Protein (6.3 - 8.2 g/dL) 6.7 Albumin (3.5 - 5.0 g/dL) 4.6 Globulin (1.9 - 4.2 gm/dL) 2.1 Albumin/Globulin Ratio (1.1 - 2.2 %) 2.2 Lipase (23 - 300 U/L) 54 TSH (0.270 - 4.200 uIU/mL) 1.490 Free T4 (0.78 - 2.44 ng/dL) 0.86 Coagulation PT (9.4 - 12.5 SEC) 11.0 INR (0.90 - 1.19) 1.05 APTT (25 - 37 SEC) Cancelled 30 Hematology CBC w Diff MAN DIFF ORDERED WBC (4.8 - 10.8 /CUMM) 4.7 L RBC (4.20 - 5.40 /CUMM) 3.99 L Hgb (12.0 - 16.0 G/DL) 11.8 L Hct (37 - 47 %) 36.4 L MCV (81.0 - 99.0 FL) 91.0 MCH (27.0 - 31.0 PG) 29.5 MCHC (33.0 - 37.0 G/DL) 32.5 L RDW (11.5 - 14.5 %) 14.1 Plt Count (130 - 400 /CUMM) 240 MPV (7.4 - 10.4 FL) 7.8 Gran % (42.2 - 75.2 %) 64.1 Lymphocytes % (20.5 - 51.1 %) 29.4 Monocytes % (1.7 - 9.3 %) 4.0 Eosinophils % (0 - 5 %) 1.9 Basophils % (0.0 - 2.0 %) 0.6 Absolute Granulocytes (1.4 - 6.5 /CUMM) 3.0 Segmented Neutrophils (42.2 - 75.2 %) 62 Band Neutrophils (0.0 - 5.0 %) 5 Absolute Lymphocytes (1.2 - 3.4 /CUMM) 1.4 Lymphocytes (20.5 - 51.1 %) 26 Monocytes (1.7 - 9.3 %) 2 Absolute Monocytes (0.10 - 0.60 /CUMM) 0.2 Eosinophils (0 - 5.0 %) 5 Absolute Eosinophils (0.0 - 0.7 /CUMM) 0.1 Absolute Basophils (0.0 - 0.2 /CUMM) 0 Platelet Estimate (ADEQUATE) ADEQUATE Normocytic RBCs VERIFIED Normochromic RBCs VERIFIED ESR Westergren (0 - 20 MM) 8 Toxicology Serum Alcohol (<10 MG/DL) 24.0 Diagnostic Data EKG Results Initial electrocardiogram showed atrial fibrillation rate 122 with diffuse nonspecific T-wave changes. Repeat EKG at 2:30 AM showed sinus rhythm with an atrial premature beat with some nonspecific inferolateral ST-T wave abnormalities. Repeat EKG at 10:38 this morning shows sinus rhythm rate of 64 with nonspecific inferolateral T-wave changes. CXR Results PATIENT: HUGO WARREN PRESENT AGE: 62 PATIENT ACCOUNT NO: [id number] : 54 LOCATION: [facility] ORDERING PHYSICIAN: Suman SCOTT SERVICE DATE: 09/08/17 EXAM TYPE: RAD - XRY-PORTABLE CHEST XRAY EXAMINATION: XR PORTABLE CHEST CLINICAL INFORMATION: Shortness of breath. COMPARISON: Chest, 07/24/2017 TECHNIQUE: Portable frontal view of the chest was obtained. 11:29 PM FINDINGS: No significant abnormality is noted involving the heart, lungs, mediastinum, bony thorax or soft tissues. Orthopedic plate and screw at lower cervical spine. IMPRESSION: Unremarkable examination. DICTATED BY: Messi Sánchez MD DATE/TIME DICTATED:09/09/17 PROSTHETICS LAB TECHNICIAN:ELLIOTT DATE/TIME TRANSCRIBED:09/09/17 CONFIDENTIAL, DO NOT COPY WITHOUT APPROPRIATE AUTHORIZATION. <Electronically signed in Other Vendor System> SIGNED BY: Messi Sánchez MD 09/09/17 0005 Other Results PATIENT: HUGO WARREN PRESENT AGE: 62 PATIENT ACCOUNT NO: [id number] : 54 LOCATION: [facility] ORDERING PHYSICIAN: Suman SCOTT SERVICE DATE: 09/08/17 EXAM TYPE: RAD - XRY-PORTABLE CHEST XRAY EXAMINATION: XR PORTABLE CHEST CLINICAL INFORMATION: Shortness of breath. COMPARISON: Chest, 07/24/2017 TECHNIQUE: Portable frontal view of the chest was obtained. 11:29 PM FINDINGS: No significant abnormality is noted involving the heart, lungs, mediastinum, bony thorax or soft tissues. Orthopedic plate and screw at lower cervical spine. IMPRESSION: Unremarkable examination. DICTATED BY: Messi Sánchez MD DATE/TIME DICTATED:09/09/17 PROSTHETICS LAB TECHNICIAN:ELLIOTT DATE/TIME TRANSCRIBED:09/09/17 CONFIDENTIAL, DO NOT COPY WITHOUT APPROPRIATE AUTHORIZATION. <Electronically signed in Other Vendor System> SIGNED BY: Messi Sánchez MD 09/09/17 0005 Assessment/Plan Assessment/Plan The patient is a 62-year-old female with a past history of hypertension, obesity , cigarette smoking, previous kidney and liver transplant. She has underlying mild aortic stenosis and LVH by echocardiogram. She presented yesterday with atrial fibrillation which spontaneously converted to sinus rhythm after about 8 hours. She is on IV heparin. She has been continued on beta blockers. She is hemodynamically stable at this time. I recommend stopping the IV heparin and starting her on Eliquis 5 mg twice a day. I suspect she has been having paroxysmal atrial fibrillation based on her episode a few months ago, and she is at risk for stroke and embolus. I would recommend increasing her beta tor to 50 mg twice daily. If she remains stable overnight and is ambulatory and remains in sinus rhythm she can probably be discharged tomorrow. If she has recurrent episodes of atrial fibrillation in the future we would have to consider antiarrhythmic drugs or other procedures, but for now I think just treating her with beta blockers and anticoagulation would be sufficient. Copies To: Shabnam HARDY,Junito Esquivel; Lavon HARDY,Ibrahima Galeana. Consult Acknowledgment - Thank you for your consult request.
--- NOTE | 2017-09-09 13:50 | ECHOCARDIOGRAM REPORT ---
HUGO WARREN Age: 62 : 1955 Gender: F Exam Date: 09/09/2017 09:17 Exam Location: [address] Ht (in): 64 Wt (lb): 221 BSA: 2.18 BP: 130 / 62 Ordering Physician: Cirilo Cameron MD Referring Physician: Cirilo Cameron MD Technologist: Viraj Padilla [facility] Room Number: 175-1 Indications: AFIB/FLUTTER Rhythm: Sinus Technical Quality: Good FINDINGS Left Ventricle Normal size left ventricle. Moderate concentric left ventricular hypertrophy. Normal left ventricular ejection fraction visually estimated at >65 %. Normal left ventricular diastolic filling pattern for age. Right Ventricle The right ventricle is normal in size and function. Right Atrium The right atrium is normal in size. Left Atrium Left atrial size at the upper limits of normal. Mitral Valve Mild thickening/calcification of the mitral valve leaflets. No mitral regurgitation. Aortic Valve Diffuse thickening of the aortic valve cusps with reduced excursion. Mild aortic stenosis. No aortic regurgitation. Tricuspid Valve The tricuspid valve is normal in structure and function. There is trace to mild tricuspid regurgitation. Pulmonary artery systolic pressure is normal. Pulmonic Valve Structurally normal pulmonic valve. There is no pulmonic regurgitation. Pericardium Normal pericardium without effusion. No pleural effusion. Great Vessels Normal aortic root dimension. The aortic arch and great vessels are not well seen. CONCLUSIONS Moderate concentric left ventricular hypertrophy. Normal left ventricular ejection fraction visually estimated at >65 Normal left ventricular diastolic filling pattern for age. Left atrial size at the upper limits of normal. Mild thickening/calcification of the mitral valve leaflets. Diffuse thickening of the aortic valve cusps with reduced excursion. Mild aortic stenosis. Pulmonary artery systolic pressure is normal. The aortic arch and great vessels are not well seen. Kory Rowe M.D. (Electronically Signed) Final Date: 09 September 2017 13:49 MEASUREMENTS (Male / Female) Normal Values 2D ECHO LV Diastolic Diameter PLAX 4.1 cm 4.2 - 5.9 / 3.9 - 5.3 cm LV Systolic Diameter PLAX 2.6 cm 2.1 - 4.0 cm LV Fractional Shortening PLAX 36.6 % 25 - 46 % LV Ejection Fraction 2D Teich 66.8 % IVS Diastolic Thickness 1.5 cm LVPW Diastolic Thickness 1.5 cm LV Relative Wall Thickness 0.7 LVOT Diameter 1.8 cm Aortic Root Diameter 2.2 cm LA Systolic Diameter LX 3.4 cm 3.0 - 4.0 / 2.7 - 3.8 cm Ascending Aorta Diameter 2.8 cm DOPPLER AV Peak Velocity 262.0 cm/s AV Peak Gradient 27.5 mmHg AV Mean Velocity 163.0 cm/s AV Mean Gradient 13.0 mmHg AV Velocity Time Integral 51.1 cm LVOT Peak Velocity 134.0 cm/s LVOT Peak Gradient 7.2 mmHg LVOT Mean Velocity 75.8 cm/s LVOT Mean Gradient 3.0 mmHg LVOT Velocity Time Integral 28.2 cm LVOT Stroke Volume 71.8 cm AV Area Cont Eq vti 1.4 cm AV Area Cont Eq pk 1.3 cm MV Peak Velocity 109.0 cm/s MV Peak Gradient 4.8 mmHg MV Mean Velocity 67.4 cm/s MV Mean Gradient 2.0 mmHg Mitral E Point Velocity 104.0 cm/s Mitral A Point Velocity 83.9 cm/s Mitral E to A Ratio 1.2 MV PHT Velocity 113.0 cm/s MV Deceleration [place] 290.0 cm/s MV Pressure Half Time 116.9 ms MV Area PHT 1.9 cm MV Deceleration Time 257.0 ms TR Peak Velocity 248.0 cm/s TR Peak Gradient 24.6 mmHg Right Atrial Pressure 5.0 mmHg Pulmonary Artery Systolic Pressu 29.6 mmHg Right Ventricular Systolic Press 29.6 mmHg PV Peak Velocity 123.0 cm/s PV Peak Gradient 6.1 mmHg PV Mean Velocity 80.4 cm/s PV Mean Gradient 3.0 mmHg PV Velocity Time Integral 28.8 cm LV E' Lateral Velocity 9.1 cm/s Mitral E to LV E' Lateral Ratio 11.5 LV E' Septal Velocity 7.0 cm/s Mitral E to LV E' Septal Ratio 14.8
[2017-09-09 14:41] LABS: PTT 48 SEC (25-37)
[2017-09-09 14:47] VITALS: BP 128/68
[2017-09-09 22:08] VITALS: BP 138/76
--- NOTE | 2017-09-10 06:56 | PN- Housestaff ---
Berto HARDY,Sarai 09/10/17 0655: Subjective Follow-up For: New onset atrial fibrillation Complaints: no complaints Tele-Events Since Last Visit: Sinus rhythm heart rate 60 Subjective: Patient was seen and examined at bedside. She was lying in her bed comfortably. No overnight events. She offers no complaints. She denies chest pain, chest pressure, shortness of breath, palpitation, nausea, vomiting. Review of Systems Constitutional: Reports: no symptoms. Cardiovascular: Reports: no symptoms. Respiratory: Reports: no symptoms. Gastrointestinal: Reports: no symptoms. Genitourinary: Reports: no symptoms. Musculoskeletal: Reports: no symptoms. Objective Last 24 Hrs of Vital Signs/I&O Vital Signs Date Time Temp Pulse Resp B/P B/P Pulse O2 O2 Flow FiO2 Mean Ox Delivery Rate 09/10 0950 64 130/60 09/10 0658 98.6 64 20 130/60 96 Room Air 09/09 2253 82 158/84 09/09 2208 98.9 62 20 138/76 97 Room Air 09/09 1824 98.5 09/09 1727 98.5 09/09 1612 97 Room Air 09/09 1447 97.3 68 20 128/68 95 Intake & Output 09/10 1600 09/10 0800 09/10 0000 Intake Total 120 240 Output Total Balance 120 240 Intake, Oral 120 240 Physical Exam General Appearance: Alert, Oriented X3, Cooperative, No Acute Distress Skin: No Rashes, No Breakdown HEENT: PERRLA, EOMI Cardiovascular: Normal S1, Normal S2, No Murmurs Lungs: Clear to Auscultation Abdomen: Soft, No Tenderness, No Hepatospenomegaly Neurological: Normal Speech, Strength at 5/5 X4 Ext, Normal Tone, Sensation Intact Extremities: No Cyanosis, No Edema, Normal Pulses Current Medications: Current Medications Sig/Abram Start time Last Medication Dose Route Stop Time Status Admin Acetaminophen 650 MG ONCE ONE 09/09 1729 DC 09/09 PO 09/09 1730 172 Albuterol Sulfate 2 PUF Q4-6 PRN PRN 09/08 2315 AC INH Apixaban 5 MG BID 09/090 AC 09/10 PO 0950 Diazepam 2 MG ONCE ONE 09/105 DC 09/10 PO 09/10 415 0410 Gabapentin 600 MG .STK-MED ONE 02/07 1736 DC PO 09/09 1737 Gabapentin 600 MG Q8 PRN 09/08 2315 AC 09/09 PO 2251 Heparin Sodium 25,000 UNIT Q24H 09/08 2215 DC 09/08 (Porcine) IV 2254 Sodium Chloride 500 ML Lorazepam 0.5 MG ONE ONE 09/10 0415 CAN PO 09/10 0416 Magnesium Oxide 400 MG DAILY 09/09 1000 AC 09/10 PO 0955 Melatonin 9 MG QPM 09/09 0200 AC 09/09 PO 2251 Metoprolol Succinate 50 MG BID 09/09 2200 AC 09/10 PO 0950 Metoprolol Succinate 25 MG BID 09/09 1000 DC 09/09 PO 1120 Mycophenolate Mofetil 750 MG BID 09/09 1000 AC 09/10 PO 0956 Prednisone 5 MG DAILY 09/09 1000 AC 09/10 PO 0950 Tacrolimus 3 MG BID 09/09 1000 AC 09/10 PO 0955 Tramadol HCl 100 MG BID 09/08 2330 AC 09/10 PO 0955 Last 24 Hrs of Lab/Bill Results Last 24 Hrs of Labs/Mics: Laboratory Tests 09/10/17 0645: Anion Gap 9, Estimated GFR 56 L, BUN/Creatinine Ratio 30.0 H, Magnesium 2.0 09/09/17 1212: APTT 48 H Assessment/Plan Assessment: Patient is a 62-year-old -Cro[place] female with a past medical history significant for 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 Patient was found to be in A. fib on EKG, chest pain is reproducible described as a burning, pressure-like pain. She has no signs of fluid overload including leg swelling, JVD, pulmonary vascular congestion. Problem list #A. 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 Patient was on IV heparin. We will discontinue IV heparin and started on Eliquis 5 mg twice a day. She will be followed a Kory Rowe MD as outpatient. Hypomagnesemia had a magnesium level of 1.3 upon admission and it was replaced. Repeat magnesium is 2.4. Renal and liver transplant in 2015 We will continue tacrolimus, mycophenolate mofetil and steroids. And advised to follow up with at [facility]. Nicotine dependence, asthma, hypertension We will continue her home medication metoprolol XL, gabapentin. If needed we will start her on nicotine patch. Counseled on smoking cessation. We will continue albuterol for asthma. Diet-heart healthy diet Plan-she will be followed by cardiology today. Discharge to home today. Problem List: 1. New onset a-fib Pain Ratin Pain Location: none Pain Goal: Remain pain free Pain Plan: tylenol Tomorrow's Labs & Rationales: none Shefali HARDY,Kavin 09/10/17 1211: Attending MD Review Statement Attending Statement Attending MD Statement: examined this patient, discuss w/resident/PA/PRE K LEAD TEACHER, agreed w/resident/PA/PRE K LEAD TEACHER, discussed with family, reviewed EMR data (avail), discussed with nursing, discussed with case mgmt, amended to note Attending Assessment/Plan: Patient seen and examined. Resting comfortably and not in any acute distress. She remains in normal sinus rhythm overnight. Denies any chest pain or shortness of breath. Denies any palpitations. She will be discharged home today on anticoagulation therapy and she will follow-up with her cardiology service for determination of duration of anticoagulation therapy. Consideration also be given to implantable loop recorder as well in the outpatient setting. She will also continue on Toprol-XL for rate control the dose has been increased from 25 mg twice daily to 50 mg twice daily. Her blood pressure has been tolerating this dose.
[2017-09-10 06:58] VITALS: BP 130/60
--- NOTE | 2017-09-10 07:01 | Patient Discharge Instructions ---
Discharge Instructions General Discharge Information You were seen/treated for: Atrial fibrillation Watch for these problems: In case of chest pain, chest pressure, nausea, vomiting, abdominal pain, palpitation please call to the nearest emergency room Special Instructions: Please follow-up with your primary care provider within 1-2 weeks of discharge. Please follow-up with the civil engineering designer within 1-2 weeks of discharge. Diet Continue normal diet: No Recommended Diet: Heart Healthy Activity Full Activity/No Limits: No Activity Self Limited: Yes Acute Coronary Syndrome Inclusion Criteria At DC or during hospital stay patient has or had the following: ACS DIAGNOSIS No Discharge Core Measures Meds if any: Prescribed or Continued at Discharge Meds if any: NOT Prescribed or Continued at Discharge Congestive Heart Failure Inclusion Criteria At DC or during hospital stay patient has or had the following: CHF DIAGNOSIS No Discharge Core Measures Meds if any: Prescribed or Continued at Discharge Meds if any: NOT Prescribed or Continued at Discharge Cerebrovascular accident Inclusion Criteria At DC or during hospital stay patient has or had the following: CVA/TIA Diagnosis No Discharge Core Measures Meds if any: Prescribed or Continued at Discharge Meds if any: NOT Prescribed or Continued at Discharge Venous thromboembolism Inclusion Criteria VTE Diagnosis No VTE Type NONE VTE Confirmed by (Test) NONE Discharge Core Measures - Per Current guidelines, there needs to be overlap - treatment for the first 5 days of Warfarin therapy. - If discharged on Warfarin prior to 5 days of - overlap therapy, the patient will need to be - assessed for post discharge needs including - *Post discharge parental anticoagulation - *Warfarin and/or parental anticoagulation education - *Follow up date to check INR post discharge At least 5 days overlap therapy as Inpatient No Meds if any: Prescribed or Continued at Discharge Note: Overlap Therapy is Warfarin and Anticoagulant Meds if any: NOT Prescribed or Continued at Discharge
[2017-09-10] MEDS ORDERED: TOPROL XL50 M1 PO ×2 (08:20→10:31)
[2017-09-10] MEDS ORDERED: ELIQUIS5 M1 PO ×3 (08:20→11:34)
--- NOTE | 2017-09-10 09:02 | Cons- Nephrology ---
General Information and HPI Consulting Request Date of Consult: 09/10/17 Requested By: Shefali HARDY,Kavin History of Present Illness: Ms. 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 She had been followed by [facility] and was hospitalized here in 2014. She developed TANVI after large volume paracentesis with creatinine rising from 1.5 to 2 that subsequently fell back to 1.4 with albumin infusion. she was discharged home. later that year she underwent liver/kidney transplant in [place] and has been followed by the [facility] service since then. She underwent treatment with [facility] after the transplant and tells me she is no longer viremic for hepatitis C. She is maintained on tacrolimus, mycophenolate and prednisone (she says 3 mg bid/750 mg bid/5 mg daily). and has been taking her medications faithfully. Creatinine is 1.0. She was admitted with palpitations and vague chest pain and is undergoing evaluation for this. Allergies/Medications Allergies: Coded Allergies: midazolam (Severe, HALLUCINATIONS 12/25/16) diphenhydramine (Intermediate, ANXIETY 12/25/16) naproxen (Mild, GI 12/25/16) grapefruit (MEDICATION INTERACTION 09/08/17) Home Med List: Albuterol Sulfate (Albuterol Sulfate Hfa) 90 MCG HFA.AER.AD 2 PUFF INH Q4-6 PRN PRN SHORTNESS OF BREATH (Reported) 90 MCG PER PUFF Apixaban (Eliquis) 5 MG TABLET 5 MG PO BID heart Gabapentin 600 MG TABLET 2 TAB PO BID PRN NERVE PAIN (Reported) Gabapentin 600 MG TABLET 1 TAB PO ONCE PRN Nerve pain (Reported) Given in the afternoon Hydrocodone/Acetaminophen ([place] 5-325 Tablet) 5 MG-325 MG TABLET 1-2 TAB PO Q6P PRN PAIN Magnesium Oxide 400 MG TABLET 1 TAB PO DAILY SUPPLEMENT (Reported) Metoprolol Succ XL (Toprol XL) 25 MG TAB 1 TAB PO BID HEART (Reported) Metoprolol Succ XL (Toprol Xl) 50 MG TAB 50 MG PO BID heart Multivitamin (Multiple Vitamins) 1 EACH TABLET 1 TAB PO DAILY SUPPLEMENT ( Reported) Mycophenolate Mofetil (Cellcept) 250 MG CAPSULE 3 CAP PO BID IMMUNOSUPPRESSION (Reported) Polyethylene Glycol 3350 (Gavilax) 17 GRAM/DOSE POWDER 1 PAC PO DAILY GI ( Reported) Prednisone 5 MG TABLET 1 TAB PO DAILY IMMUNORSUPPRESSION (Reported) Tacrolimus (Prograf) 1 MG CAPSULE 3 CAP PO BID IMMUNOSUPPRESSION Current Medications: Current Medications Sig/Abram Start time Last Medication Dose Route Stop Time Status Admin Acetaminophen 650 MG ONCE ONE 09/09 1730 DC 09/09 PO 09/09 1731 1727 Albuterol Sulfate 2 PUF Q4-6 PRN PRN 09/08 2315 AC INH Apixaban 5 MG BID 09/09 2200 AC 09/09 PO 2250 Diazepam 2 MG ONCE ONE 09/10 0415 DC 09/10 PO 09/10 0416 0410 Gabapentin 600 MG .STK-MED ONE 09/09 1736 DC PO 09/09 1737 Gabapentin 600 MG Q8 PRN 09/08 2315 AC 09/09 PO 2251 Heparin Sodium 25,000 UNIT Q24H / 2215 DC 09/08 (Porcine) IV 2254 Sodium Chloride 500 ML Lorazepam 0.5 MG ONE ONE 09/10 0415 CAN PO 09/10 0416 Magnesium Oxide 400 MG DAILY 09/09 1000 AC 09/09 PO 1121 Melatonin 9 MG QPM / 0200 AC 09/09 PO 2251 Metoprolol Succinate 50 MG BID 09/09 2200 AC 09/09 PO 2253 Metoprolol Succinate 25 MG BID 09/09 1000 DC 09/09 PO 1120 Mycophenolate Mofetil 750 MG BID / 1000 AC / PO 2250 Prednisone 5 MG DAILY / 1000 AC / PO 1121 Tacrolimus 3 MG BID 09/09 1000 AC 09/09 PO 2250 Tramadol HCl 100 MG BID 09/08 2330 AC 09/09 PO 2251 Review of Systems Review of Systems: As in HPI otherwise negative Past History Travel History Traveled to [place] past 21 day No Medical History Blood Transfusion Hx: Yes Neurological: NEUROPATHY EENT: allergies, otitis media Cardiovascular: hypertension Respiratory: asthma Gastrointestinal: GERD, PEG TUBE Hepatic: cirrhosis, hepatitis C, LIVER TRANSPLANT - 12/2014 - [place]. Renal: KIDNEY TRANSPLANT Musculoskeletal: chronic back pain, disk herniation, osteoarthritis Psychiatric: anxiety Endocrine: NONE Blood Disorders: pancytopenia Cancer(s): NONE BOX FABRICATOR/Reproductive: NONE Surgical History Surgical History: KIDNEY LIVER TRANSPLANT 11/21/14 in [facility] 12/2014. Family History Relations & Conditions If Any: BROTHER (oral cancer). MOTHER MOTHER (brain aneursym). FATHER (heart disease). Psychosocial History Where Do You Live? Home Who Do You Live With? spouse, child Services at Home: daughter who is a nurse helps with her meds Primary Language: Vietnamese Smoking Status: Current Everyday Smoker (4-5 cigs/day for 30 years) ETOH Use: occasional use Illicit Drug Use: denies illicit drug use Living Will? unknown Power of Paleontology Teacher/HCP? unknown Functional Ability ADLs Independent: eating, toileting, bathing. Ambulation: independent IADLs Independent: shopping, housework, finances, food prep, telephone, transportation. Needs Assist: medication admin. Exam & Diagnostic Data Vital Signs and I&O F Comfortable 130/60 64 98.6 Skin neg rash Eyes anicteric ENT moist Lungs clear Cor RRR Abd obese soft N/T Ext neg edema Neuro nonfocal Results Pertinent Lab Results: 140 / 110 / 30 / 4.4 / 21 / 1.0\ Assessment/Plan Assessment/Recommendations Assessment: 62 yo s/p liver/kidney transplant admitted with palpitations/chest pain. Evaluation as per Dr. Rowe with regard to this. Kidney function is excellent and she should continue her immunosupressive medications as you have done. She is followed by [facility] and should continue to do so. Should she need cardiac cath, this is probably best done at [facility] where her transplant team can follow her periprocedure. Thanks will follow. Recommendations: .
[2017-09-10] MEDS ORDERED: TACROLIMUS1 M1 PO (09:30)
[2017-09-10 09:50] VITALS: BP 130/60
--- NOTE | 2017-09-10 11:01 | PN- Cardiology ---
Subjective Subjective: The patient is feeling well today. She has remained in sinus rhythm overnight. Her vital signs are normal. She is now on metoprolol 50 mg twice daily in addition to her other regular medications. We have started her on Eliquis as well. Objective Vital Signs and I&Os Vital Signs Date Time Temp Pulse Resp B/P B/P Pulse O2 O2 Flow FiO2 Mean Ox Delivery Rate 09/10 0950 64 130/60 09/10 0658 98.6 64 20 130/60 96 Room Air 09/09 2253 82 158/84 09/09 2208 98.9 62 20 138/76 97 Room Air 09/09 1824 98.5 09/09 1727 98.5 09/09 1612 97 Room Air 09/09 1447 97.3 68 20 128/68 95 09/09 1120 98.1 80 16 136/78 Intake & Output 09/10 1600 09/10 0800 09/10 0000 09/09 1600 09/09 0800 09/09 0000 Intake Total 120 240 730 358 0 Output Total 400 Balance 120 240 330 358 0 Intake, IV 130 258 Intake, Oral 120 240 600 100 0 Output, Urine 400 Patient 221 lb 221 lb Weight Weight Reported by Patient Measurement Method Physical Exam: She is in no distress HEENT exam normal Chest clear Heart regular rhythm no murmurs Extremities no edema Current Medications: Current Medications Sig/Abram Start time Last Medication Dose Route Stop Time Status Admin Acetaminophen 650 MG ONCE ONE 09/09 1729 DC 09/09 PO 09/09 173 1727 Albuterol Sulfate 2 PUF Q4-6 PRN PRN 09/08 2315 AC INH Apixaban 5 MG BID 09/09 2199 AC 09/10 PO 0950 Diazepam 2 MG ONCE ONE 09/10 414 DC 09/10 PO 09/10 0416 0410 Gabapentin 600 MG .STK-MED ONE 09/09 173 DC PO 09/09 173 Gabapentin 600 MG Q8 PRN 09/08 2315 AC 09/09 PO 2251 Heparin Sodium 25,000 UNIT Q24H 09/08 2214 DC 09/08 (Porcine) IV 2254 Sodium Chloride 500 ML Lorazepam 0.5 MG ONE ONE 09/10 0415 CAN PO 09/10 0416 Magnesium Oxide 400 MG DAILY 09/09 1000 AC 09/10 PO 0955 Melatonin 9 MG QPM 09/09 0200 AC 09/09 PO 2251 Metoprolol Succinate 50 MG BID 09/09 220 AC 09/10 PO 0950 Metoprolol Succinate 25 MG BID 09/09 1000 DC 09/09 PO 1120 Mycophenolate Mofetil 750 MG BID 09/09 1000 AC 09/10 PO 0956 Prednisone 5 MG DAILY 09/09 1000 AC 09/10 PO 0950 Tacrolimus 3 MG BID 09/09 1000 AC 09/10 PO 0955 Tramadol HCl 100 MG BID 09/08 2330 AC 09/10 PO 0955 Results Last 48 Hrs of Labs/Mics: Laboratory Tests 09/10/17 0645: Anion Gap 9, Estimated GFR 56 L, BUN/Creatinine Ratio 30.0 H, Magnesium 2.0 09/09/17 1212: APTT 48 H 09/09/17 1105: Troponin I < 0.01 09/09/17 0500: Anion Gap 10, Estimated GFR 56 L, BUN/Creatinine Ratio 30.0 H, Magnesium 2.4 H, APTT > 120 *H, CBC w Diff MAN DIFF ORDERED, RBC 3.54 L, MCV 91.4, MCH 29.5, MCHC 32.3 L, RDW 14.5, MPV 8.1, Gran % 52.1, Lymphocytes % 38.6, Monocytes % 6.5, Eosinophils % 2.4, Basophils % 0.4, Absolute Granulocytes 2.6, Segmented Neutrophils 42 L, Band Neutrophils 1, Absolute Lymphocytes 1.9, Lymphocytes 50, Monocytes 4, Absolute Monocytes 0.3, Eosinophils 3, Absolute Eosinophils 0.1, Absolute Basophils 0, Platelet Estimate ADEQUATE, Normocytic RBCs VERIFIED, Normochromic RBCs VERIFIED 09/09/17 0330: APTT Cancelled 09/09/17 0245: Troponin I 0.02 09/08/17 2226: Methadone Screen Cancelled, Barbiturate Screen Cancelled, Ur Phencyclidine Scrn Cancelled, Amphetamines Screen Cancelled, U Benzodiazepines Scrn Cancelled, Urine Cocaine Screen Cancelled, Urine Cannabis Screen Cancelled 09/08/172038: Anion Gap 14, Estimated GFR 50 L, BUN/Creatinine Ratio 26.4 H, Glucose 135 H, Calcium 10.0, Phosphorus 3.1, Magnesium 1.5 L, Total Bilirubin 0.4, AST 25, ALT 44, Alkaline Phosphatase 73, Troponin I 0.01, C-Reactive Prot, Quant < 0.5, Total Protein 6.7, Albumin 4.6, Globulin 2.1, Albumin/Globulin Ratio 2.2, Lipase 54, TSH 1.490, Free T4 0.86, PT 11.0, INR 1.05, APTT 30, CBC w Diff MAN DIFF ORDERED, RBC 3.99 L, MCV 91.0, MCH 29.5, MCHC 32.5 L, RDW 14.1, MPV 7.8, Gran % 64.1, Lymphocytes % 29.4, Monocytes % 4.0, Eosinophils % 1.9, Basophils % 0.6, Absolute Granulocytes 3.0, Segmented Neutrophils 62, Band Neutrophils 5, Absolute Lymphocytes 1.4, Lymphocytes 26, Monocytes 2, Absolute Monocytes 0.2, Eosinophils 5, Absolute Eosinophils 0.1, Absolute Basophils 0, Platelet Estimate ADEQUATE, Normocytic RBCs VERIFIED, Normochromic RBCs VERIFIED, ESR Westergren 8 , Serum Alcohol 24.0 Assessment/Plan Assessment/Plan The patient has remained in sinus rhythm. Her vital signs are normal. Her echocardiogram showed good LV function and mild aortic stenosis. She is now anticoagulated. I recommend sending her home on her current regimen. She can follow-up with her regular peanut blancher, Dr. Doll. He will determine the duration of anticoagulation therapy. She may benefit from long-term monitoring such as with an implantable loop recorder. Continue telemetry? No
--- NOTE | 2017-09-10 11:11 | Discharge Summary ---
Hospital Course Allergies: Coded Allergies: midazolam (Severe, HALLUCINATIONS 12/25/16) diphenhydramine (Intermediate, ANXIETY 12/25/16) naproxen (Mild, GI 12/25/16) grapefruit (MEDICATION INTERACTION 09/08/17) Discharge Instructions Medications at Discharge Discharge Medications: Stop taking the following medications: Hydrocodone/Acetaminophen ([place] 5-325 Tablet) 5 MG-325 MG TABLET ORAL EVERY SIX HOURS NEEDED as needed for PAIN Qty = 20 Metoprolol Succ XL (Toprol XL) 25 MG TAB ORAL TWICE DAILY Continue taking these medications: Albuterol Sulfate (Albuterol Sulfate Hfa) 90 MCG HFA.AER.AD 2 PUFF Inhale through mouth EVERY 4-6 HOURS NEEDED as needed for SHORTNESS OF BREATH Qty = 1 Instructions: 90 MCG PER PUFF Comments: NOT GIVEN Gabapentin (Gabapentin) 600 MG TABLET 2 Tablet ORAL TWICE DAILY as needed for NERVE PAIN Comments: NOT GIVEN IN HOSPITAL. Magnesium Oxide (Magnesium Oxide) 400 MG TABLET 1 Tablet ORAL DAILY Comments: PER PT MED LIST FROM [facility] DATED 03/12/2015 Polyethylene Glycol 3350 (Gavilax) 17 GRAM/DOSE POWDER 1 Packet ORAL DAILY Comments: PER PT MED LIST FROM [facility] DATED 03/12/2015 LAST TAKEN 03/24 AT 11AM Multivitamin (Multiple Vitamins) 1 EACH TABLET 1 Tablet ORAL DAILY Comments: PER PT MED LIST FROM [facility] DATED 03/12/2015 LAST TAKEN 03/25 AT 11AM Mycophenolate Mofetil (Cellcept) 250 MG CAPSULE 3 Capsule ORAL TWICE DAILY Comments: Last Taken: 09/10/17 Time: 0955am Prednisone (Prednisone) 5 MG TABLET 1 Tablet ORAL DAILY Qty = 10 Comments: Last Taken: 09/10/17 Time: 0955 am Gabapentin (Gabapentin) 600 MG TABLET 1 Tablet ORAL GIVE ONCE as needed for Nerve pain Instructions: Given in the afternoon Comments: Last Taken: 09/10/17 Time: 1050 pm Tacrolimus (Tacrolimus) 1 MG CAPSULE 3 Capsule ORAL TWICE DAILY Qty = 180 Comments: Last Taken: 09/10/17 Time: 0955 am Start taking the following new medications: Metoprolol Succ XL (Toprol Xl) 50 MG TAB 50 Milligram ORAL TWICE DAILY Qty = 60 Refills = 1 Instructions: . Comments: Last Taken: 09/10/17 Time: 0955 am Apixaban (Eliquis) 5 MG TABLET 5 Milligram ORAL TWICE DAILY Qty = 60 Refills = 1 Instructions: .. Comments: Last Taken: 09/10/17 Time: 0955 am Attending MD Review Statement Documenting Attending: Kavin Meehan MD Other Findings: Discharge in stable condition.
== END 2017-09-10 12:35 | DRG 309 ==
LOC: ERH 20:28 → ERHI 22:15 → 1NO 22:15 → ENRESERV 23:28 → 1NO 09-09 01:01 → ENPENDDIS 09-10 09:44 → 1NO 09-10 12:35
PROVIDERS: Emergency Medicine; Internal Medicine; Student in an Organized Health Care Education/Training Program
DX: I48.91 Unspecified atrial fibrillation (principal); Z94.4 Liver transplant status; D61.818 Other pancytopenia; Z94.0 Kidney transplant status; G62.9 Polyneuropathy, unspecified; E83.42 Hypomagnesemia; J45.909 Unspecified asthma, uncomplicated; I10 Essential (primary) hypertension; E66.9 Obesity, unspecified; Z68.37 Body mass index [BMI] 37.0-37.9, adult; K21.9 Gastro-esophageal reflux disease without esophagitis; F17.210 Nicotine dependence, cigarettes, uncomplicated; E03.9 Hypothyroidism, unspecified; G89.29 Other chronic pain; M54.9 Dorsalgia, unspecified
CPT/HCPCS: 1NP; ERO; 36415; 71045; 80307; 82436; 93005; 93010; 93306; G0480; J1644; J3490; J7512; J7517

== ENCOUNTER 2017-09-26 16:24 | Emergency (ER) | payer OTHER, MEDICARE ==
[~2017-09-26] VITALS: Ht 162.6 cm; Wt 102.5 kg
[~2017-09-26 16:24] MED LIST changes: -ALBUTEROL0.09 MG/A1 INH; +ELIQUIS5 M1 PO; +GAVILAX17 GM PO; -GAVILAX17 GM/Dose PO; +MAGNESIUM400 M1 PO; +MULTIPLE VITAM1 EAC2 PO; -MULTIVITAMIN1 TAB PO; +PROAIR HFA8.5 GM INH; +PROGRAF1 M1 PO; +TACROLIMUS1 M1 PO; +TOPROL XL25 M1 PO; +TOPROL XL50 M1 PO
[2017-09-26 17:08] LABS: ABSOLUTE BASOPHIL COUNT 0.1 /CUMM (0.0-0.2); ABSOLUTE EOSINOPHIL COUNT 0.1 /CUMM (0.0-0.7); ABSOLUTE GRANULOCYTE CT 3.5 /CUMM (1.4-6.5); ABSOLUTE LYMPH COUNT 1.3 /CUMM (1.2-3.4); ABSOLUTE MONOCYTE COUNT 0.2 /CUMM (0.10-0.60); BASOPHIL % 1.1 % (0.0-2.0); EOSINOPHIL % 1.6 % (0-5); GRANULOCYTE % 67.9 % (42.2-75.2); HEMATOCRIT 36.3 % (37-47); MEAN CORPUSCULAR HGB 29.8 PG (27.0-31.0); MEAN CORPUSCULAR HGB CONC 32.8 G/DL (33.0-37.0); MEAN CORPUSCULAR VOLUME 90.8 FL (81.0-99.0); MEAN PLATELET VOLUME 8.1 FL (7.4-10.4); PLATELET COUNT 235 /CUMM (130-400); RBC DISTRIBUTION WIDTH 14.3 % (11.5-14.5); WHITE BLOOD CELL COUNT 5.1 /CUMM (4.8-10.8)
[2017-09-26 17:15] LABS: PT 22.3 SEC (9.4-12.5); PTT 38 SEC (25-37)
--- NOTE | 2017-09-26 17:47 | ED CARDIAC/CP/PALPITATIONS ---
History of Present Illness General Chief Complaint: General Adult Stated Complaint: PT IS HAVING HEADACHE PRESSUREN IS HIGH Source: patient Exam Limitations: no limitations Vital Signs & Intake/Output Vital Signs & Intake/Output Vital Signs Date Time Temp Pulse Resp B/P B/P Pulse O2 O2 Flow FiO2 Mean Ox Delivery Rate 09/26 2047 97.8 64 16 148/80 95 Room Air 09/26 2004 97 09/26 1902 109 160/80 09/26 1849 109 160/80 09/26 1635 96.4 102 18 163/100 96 Room Air Allergies Coded Allergies: midazolam (Severe, HALLUCINATIONS 12/25/16) diphenhydramine (Intermediate, ANXIETY 12/25/16) naproxen (Mild, GI 12/25/16) grapefruit (MEDICATION INTERACTION 09/08/17) Triage Note: PATIENT TO ER C/C HEADACHE, DIZZINESS, AND VOMITING X 1 DAY. STATES B/P AT HOME 176/80, 163/100 IN TRIAGE. RECENTLY STARTED ON XARELTO FOR NEW ONSET AFIB. HX OF LIVER AND KIDNEY TRANSPLANT 2014. Triage Nurses Notes Reviewed? yes Onset: Gradual Timing: multiple episodes today Quality/Severity: moderate Location: substernal Radiation: no radiation HPI: Patient is a 62-year-old female with a past medical history of hepatitis C cirrhosis and is status post approximate 3 years ago of hepatic and renal transplant currently on immunosuppressant therapy, history of asthma hypertension peripheral neuropathy and a recent diagnosis approximately 3 weeks ago for concerns of new onset A. fib and hypo-magnesium patient was admitted and discharged patient was prescribed ELIQUIS however 2 days ago by her drapery installer FROM [place] [employer] YUSUF FORD changed her to Xarelto due to adverse drug reaction Patient states today this morning she had acute onset of room spinning sensation dizziness intermittent chest pain described as chest heaviness and difficulty breathing Patient has had 3 episodes of nonbloody nonbilious emesis and has been unable tolerate anything by mouth. Patient states that head movements make worse. Denies any abdominal pain leg swelling, hemoptysis cough fever chills are pain jaw pain (Eleni SCOTT,Thomas) Reconcile Medications Albuterol Sulfate (Proair Hfa) 90 MCG HFA.AER.AD 2 PUF INH Q4-6 PRN PRN SOB ( Reported) Fluticasone/Vilanterol (Breo Ellipta 200-25 Mcg INH) 200 MCG-25 MCG/DOSE BLST.W.DEV 1 PUFF INH DAILY RESP. (Reported) Gabapentin 600 MG TABLET 2 TAB PO BID PRN NERVE PAIN (Reported) Lorazepam (Ativan) 0.5 MG TABLET 0.5 TAB PO BIDP PRN VERTIGO Magnesium Oxide (Magnesium) 400 MG CAPSULE 1 CAP PO DAILY SUPPLEMENT ( Reported) Meclizine HCl 25 MG TABLET 1 TAB PO TIDPRN PRN VERTIGO Metoprolol Succ XL (Toprol Xl) 50 MG TAB 50 MG PO BID heart . Multivitamin (Multiple Vitamins) 1 EACH TABLET 1 TAB PO DAILY SUPPLEMENT ( Reported) Mycophenolate Mofetil (Cellcept) 250 MG CAPSULE 3 CAP PO BID IMMUNOSUPPRESSION (Reported) Ondansetron HCl (Zofran) 4 MG TABLET 1 TAB PO Q6-8P PRN NAUSEA Polyethylene Glycol 3350 (Gavilax) 17 GRAM POWD.PACK 1 PAC PO DAILY GI ( Reported) Prednisone 5 MG TABLET 1 TAB PO DAILY IMMUNORSUPPRESSION (Reported) Rivaroxaban (Xarelto) 20 MG TABLET 1 TAB PO DAILY BLOOD THINNER (Reported) with food Scopolamine (Transderm-Scop) 1 MG/3 DAY PATCH.TD.3 1 PAT TOP AD PRN VERTIGO APPLY EVERY THREE DAYS BEHIND EAR FOR VERTIGO Tacrolimus 1 MG CAPSULE 3 CAP PO BID POST-TRANSPLANT (Reported) Tramadol HCl 50 MG TABLET 1 TAB PO BID PRN PAIN (Reported) (Jacqueline HARDY,Dar Denis) Past History Travel History Traveled to [place] past 21 day No Medical History Any Pertinent Medical History? see below for history Neurological: NEUROPATHY EENT: allergies, otitis media Cardiovascular: hypertension Respiratory: asthma Gastrointestinal: GERD, PEG TUBE Hepatic: cirrhosis, hepatitis C, LIVER TRANSPLANT - 12/2014 - [place], [place]. Renal: KIDNEY TRANSPLANT Musculoskeletal: chronic back pain, disk herniation, osteoarthritis Psychiatric: anxiety Endocrine: NONE Blood Disorders: pancytopenia Cancer(s): NONE TOPSTITCHER ZIGZAG/Reproductive: NONE History of MRSA: No History of VRE: No History of CDIFF: No Influenza Vaccine: 06/09/17 Surgical History Surgical History: KIDNEY LIVER TRANSPLANT 11/21/14 in [facility] 12/2014. Psychosocial History Who do you live with Spouse Services at Home daughter who is a nurse helps with her meds What is your primary language Estonian Tobacco Use: Current Daily Use Daily Tobacco Use Amount/Type: =< 4 Cigarettes daily Family History Family History, If Any: BROTHER (oral cancer). MOTHER MOTHER (brain aneursym). FATHER (heart disease). Hx Contributory? No (Thomas Ceron) Review of Systems Review of Systems Constitutional: Reports: see HPI, chills. EENTM: Reports: no symptoms. Respiratory: Reports: see HPI, short of breath. Cardiovascular: Reports: see HPI, chest pain. GI: Reports: see HPI, nausea. Genitourinary: Reports: no symptoms. Musculoskeletal: Reports: no symptoms. Skin: Reports: no symptoms. Neurological/Psychological: Reports: see HPI. Hematologic/Endocrine: Reports: no symptoms. Immunologic/Allergic: Reports: no symptoms. All Other Systems: Reviewed and Negative (Thomas Ceron) Physical Exam Physical Exam General Appearance: mild distress Head: atraumatic Eyes: Bilateral: normal appearance, PERRL, EOMI. Ears, Nose, Throat: normal pharynx, normal ENT inspection, hearing grossly normal Neck: normal inspection, supple, full range of motion Respiratory: normal breath sounds, chest non-tender, no respiratory distress Cardiovascular: regular rate/rhythm Peripheral Pulses: 2+ radial (R) Gastrointestinal: normal bowel sounds, soft, non-tender Extremities: normal inspection, normal capillary refill, normal range of motion, no edema Neurologic/Psych: no motor/sensory deficits, awake, alert Skin: intact, normal color, warm/dry Core Measures ACS in differential dx? Yes CVA/TIA Diagnosis No Sepsis Present: No Sepsis Focused Exam Completed? No (Thomas Ceron) Progress Differential Diagnosis: AMI, aortic dissection, atrial fibrillation, cholecystitis, CHF/pulm edema, costochondritis, hyperkalemia, hypovolemia, hyperthyroid, hyperventilation, intracranial hemorrhage, musculoskeletal pain, myocarditis, pancreatitis, pericarditis, pneumonia, pneumothorax, PSVT, pulmonary embolism, PUD/GERD, PVCs/PACs, respiratory failure, rib fracture, sepsis, unstable angina, V-fib/V-Tach, WPW syndrome Plan of Care: Orders Procedure Date/time Status TROPONIN LEVEL 09/26 2100 Complete EKG 09/26 2100 Active TROPONIN LEVEL 09/26 1638 Complete PARTIAL THROMBOPLASTIN TIME 09/26 1638 Complete PROTHROMBIN TIME 09/26 1638 Complete COMPREHENSIVE METABOLIC PANEL 09/26 1638 Complete CBC WITHOUT DIFFERENTIAL 09/26 1638 Complete EKG 09/26 1635 Active Current Medications Sig/Abram Start time Last Medication Dose Stop Time Status Admin Labetalol HCl 10 MG ONCE ONE 09/26 184 CAN (Trandate) 09/26 1846 Laboratory Tests 09/26/17 2114: Troponin I < 0.01 09/26/17 1656: Anion Gap 14, Estimated GFR 56 L, BUN/Creatinine Ratio 18.0, Glucose 153 H, Calcium 10.2, Total Bilirubin 0.6, AST 22, ALT 28, Alkaline Phosphatase 81, Troponin I < 0.01, Total Protein 6.7, Albumin 4.6, Globulin 2.1, Albumin/ Globulin Ratio 2.2, PT 22.3 H, INR 2.14 H, APTT 38 H, CBC w Diff MAN DIFF ORDERED, RBC 4.00 L, MCV 90.8, MCH 29.8, MCHC 32.8 L, RDW 14.3, MPV 8.1, Gran % 67.9, Lymphocytes % 26.1, Monocytes % 3.3, Eosinophils % 1.6, Basophils % 1.1, Absolute Granulocytes 3.5, Segmented Neutrophils 60, Band Neutrophils 3, Absolute Lymphocytes 1.3, Lymphocytes 31, Monocytes 4, Absolute Monocytes 0.2, Eosinophils 2, Absolute Eosinophils 0.1, Absolute Basophils 0.1, Platelet Estimate ADEQUATE, Anisocytosis 1+, Stomatocytes FEW On initial examination patient had noted elevated blood pressure however on manual blood pressure was noted to be 160/80 patient will receive nighttime medications of metoprolol Patient had minimal or no relief of her dizziness and room spinning sensation or shortness of breath. Patient does smoke tobacco every day however lungs are clear to auscultation patient had unremarkable initial blood work EKG and CT angiogram and CT of head, patient will receive nebulizer treatments and Ativan for her dizziness and vertigo complaints, discuss handout for Dr. Phillips Repeat troponin EKG will be ordered at 2099 Differential diagnoses include hypertensive urgency and emergency Diagnostic Imaging: Viewed by Me: CT Scan. Radiology Impression: no acute abnormality Initial ED EKG: AFIB 106 BPM Prior EKG: unchanged Hand-Off Endorsed To: Dar Phillips MD Endorsed Time: 2039 Pending: labs Comments: PATIENT: HUGO WARREN PRESENT AGE: 62 PATIENT ACCOUNT NO: [id number] : 54 LOCATION: [facility] ORDERING PHYSICIAN: Thomas SCOTT SERVICE DATE: 09/26/17 EXAM TYPE: CAT - CTA CHEST-PULMONARY EMBOLISM EXAMINATION: CT ANGIOGRAM CHEST WITH AND WITHOUT CONTRAST (CT PULMONARY ANGIOGRAM FOR PE) CLINICAL INFORMATION: Recent diagnosis of a-fib, chest pain. COMPARISON: None TECHNIQUE: Prior to contrast administration, noncontrast localization images were obtained. Subsequently, multidetector volumetric imaging was performed from the thoracic inlet to below the diaphragms following the administration of 95 mL Optiray 350 intravenous contrast. No contrast reaction reported. Sagittal, coronal, and MIP oblique sagittal reformatted images were obtained on the CT workstation, uploaded to PACS, and reviewed. DLP: 526 mGy-cm FINDINGS: QUALITY OF STUDY/CONTRAST BOLUS: Satisfactory. PULMONARY ARTERIES: No evidence of filling defects indicated central or segmental pulmonary emboli. THORACIC AORTA: No aneurysm or dissection. LUNG: Linear opacities, with areas of ground-glass opacities in the posterior aspect of bilateral lower lobes, likely reflecting atelectasis. No focal consolidation otherwise. Linear and band-like opacity in the inferior lingula, likely atelectasis or scarring. No suspicious nodules or masses seen. There is mild biapical pleural parenchymal scarring. PLEURA: No pleural effusion or pneumothorax. MEDIASTINUM: Normal heart size. No pericardial effusion. No hilar or mediastinal lymphadenopathy. No evidence of septal bowing or right heart strain. CHEST WALL/AXILLA: No axillary or internal mammary lymphadenopathy. OSSEOUS STRUCTURES: No acute or suspicious osseous abnormality. Fusion hardware in the lower cervical spine. UPPER ABDOMEN: Surgical clips in the region of the fela hepatis. No reflux of contrast into the hepatic veins to suggest elevated right heart pressures. IMPRESSION: 1. No evidence of pulmonary embolus in the central or segmental vessels. 2. Bibasilar opacities probably reflecting atelectasis. VTE: Negative. DICTATED BY: Dheeraj Ruiz MD DATE/TIME DICTATED:09/26/171902 STRADDLE BUGGY OPERATOR:GEORGE DATE/TIME TRANSCRIBED:09/26/171902 PATIENT: HUGO WARREN PRESENT AGE: 62 PATIENT ACCOUNT NO: [id number] : 54 LOCATION: [facility] ORDERING PHYSICIAN: Thomas SCOTT SERVICE DATE: 09/26/17 EXAM TYPE: CAT - CT HEAD WO IV CONTRAST EXAMINATION: CT HEAD WITHOUT CONTRAST CLINICAL INFORMATION: Headache, nausea. COMPARISON: 09/15/2017 TECHNIQUE: Contiguous axial imaging was performed from the skull base to vertex without intravenous administration of contrast. FINDINGS: There is no evidence of acute intracranial hemorrhage or territorial infarction. No abnormal mass effect or midline shift is seen. Mayo to white matter differentiation is well preserved. No extra-axial fluid collections are identified. The ventricles are normal in size. Stable small calcification in the left basal ganglia. There is mild periventricular and deep white matter hypodensities suggesting chronic microangiopathy changes. The osseous structures and soft tissues are normal. No acute calvarial abnormality. Similar appearance of partial opacification in the right mastoid air cells. New partial opacification of the anterior aspect of the left mastoid air cells. Remainder of the paranasal sinuses appear unremarkable. IMPRESSION: 1. No CT evidence of acute intracranial pathology. 2. Unchanged partial opacification of the right mastoid air cells. New partial opacification of the anterior aspect of the left mastoid air cells. DICTATED BY: Dheeraj Ruiz MD DATE/TIME DICTATED:09/26/171850 STRADDLE BUGGY OPERATOR:GEORGE DATE/TIME TRANSCRIBED:09/26/17 (Thomas Ceron) Repeat EKG: unchanged (Jacqueline HARDY,Dar Denis) Departure Departure Disposition: STILL A PATIENT Condition: Stable Clinical Impression Primary Impression: Vertigo Secondary Impressions: Chest pain, Headache, Shortness of breath Referrals: Shabnam HARDY,Junito Esquivel (PCP/Family) Departure Forms: Customer Survey General Discharge Information (Thomas Ceron) Departure Prescriptions: Current Visit Scripts Lorazepam (Ativan) 0.5 TAB PO BIDP PRN VERTIGO #8 TAB Scopolamine (Transderm-Scop) 1 PAT TOP AD PRN VERTIGO #9 PAT APPLY EVERY THREE DAYS BEHIND EAR FOR VERTIGO Ondansetron HCl (Zofran) 1 TAB PO Q6-8P PRN NAUSEA #5 TAB Meclizine HCl 1 TAB PO TIDPRN PRN VERTIGO #15 TAB PA/GRAPHIC PRODUCTION ARTIST Co-Sign Statement Statement: ED Attending supervision documentation- [X] I saw and evaluated the patient. I have also reviewed all the pertinent lab results and diagnostic results. I agree with the findings and the plan of care as documented in the PA's/GRAPHIC PRODUCTION ARTIST's documentation. 09/26/17, 22:17... pt feeling better. reproducible chest wall tenderness to palpation. otherwise benign studies... pt safe for discharge with rx for supportive medications... all questions answered. close follow up advised. [] I have reviewed the ED Record and agree with the PA's/GRAPHIC PRODUCTION ARTIST's documentation. [] Additions or exceptions (if any) to the PAs/GRAPHIC PRODUCTION ARTIST's note and plan are summarized below: [] (Jacqueline HARDY,Dar Denis) Critical Care Note Critical Care Note Critical Care Time: non-applicable (Thomas Ceron)
[2017-09-26] MEDS ORDERED: XARELTO20 M2 PO (18:54)
[2017-09-26] MEDS ORDERED: TRAMADOL HCL50 M1 PO (18:54)
[2017-09-26] MEDS ORDERED: BREO ELLIPTA 21 EACH INH (18:57)
--- NOTE | 2017-09-26 19:26 | CT SCAN REPORT ---
EXAMINATION: CT HEAD WITHOUT CONTRAST CLINICAL INFORMATION: Headache, nausea. COMPARISON: 09/15/2017 TECHNIQUE: Contiguous axial imaging was performed from the skull base to vertex without intravenous administration of contrast. FINDINGS: There is no evidence of acute intracranial hemorrhage or territorial infarction. No abnormal mass effect or midline shift is seen. Mayo to white matter differentiation is well preserved. No extra-axial fluid collections are identified. The ventricles are normal in size. Stable small calcification in the left basal ganglia. There is mild periventricular and deep white matter hypodensities suggesting chronic microangiopathy changes. The osseous structures and soft tissues are normal. No acute calvarial abnormality. Similar appearance of partial opacification in the right mastoid air cells. New partial opacification of the anterior aspect of the left mastoid air cells. Remainder of the paranasal sinuses appear unremarkable. IMPRESSION: 1. No CT evidence of acute intracranial pathology. 2. Unchanged partial opacification of the right mastoid air cells. New partial opacification of the anterior aspect of the left mastoid air cells.
--- NOTE | 2017-09-26 19:33 | CT SCAN REPORT ---
EXAMINATION: CT ANGIOGRAM CHEST WITH AND WITHOUT CONTRAST (CT PULMONARY ANGIOGRAM FOR PE) CLINICAL INFORMATION: Recent diagnosis of a-fib, chest pain. COMPARISON: None TECHNIQUE: Prior to contrast administration, noncontrast localization images were obtained. Subsequently, multidetector volumetric imaging was performed from the thoracic inlet to below the diaphragms following the administration of 95 mL Optiray 350 intravenous contrast. No contrast reaction reported. Sagittal, coronal, and MIP oblique sagittal reformatted images were obtained on the CT workstation, uploaded to PACS, and reviewed. DLP: 526 mGy-cm FINDINGS: QUALITY OF STUDY/CONTRAST BOLUS: Satisfactory. PULMONARY ARTERIES: No evidence of filling defects indicated central or segmental pulmonary emboli. THORACIC AORTA: No aneurysm or dissection. LUNG: Linear opacities, with areas of ground-glass opacities in the posterior aspect of bilateral lower lobes, likely reflecting atelectasis. No focal consolidation otherwise. Linear and band-like opacity in the inferior lingula, likely atelectasis or scarring. No suspicious nodules or masses seen. There is mild biapical pleural parenchymal scarring. PLEURA: No pleural effusion or pneumothorax. MEDIASTINUM: Normal heart size. No pericardial effusion. No hilar or mediastinal lymphadenopathy. No evidence of septal bowing or right heart strain. CHEST WALL/AXILLA: No axillary or internal mammary lymphadenopathy. OSSEOUS STRUCTURES: No acute or suspicious osseous abnormality. Fusion hardware in the lower cervical spine. UPPER ABDOMEN: Surgical clips in the region of the fela hepatis. No reflux of contrast into the hepatic veins to suggest elevated right heart pressures. IMPRESSION: 1. No evidence of pulmonary embolus in the central or segmental vessels. 2. Bibasilar opacities probably reflecting atelectasis. VTE: Negative.
[2017-09-26] MEDS ORDERED: ATIVAN0.5 M1 PO (20:42)
[2017-09-26] MEDS ORDERED: ZOFRAN4 M2 PO (20:42)
[2017-09-26] MEDS ORDERED: TRANSDERM-SCOP1 EAC1 TOP (20:42)
[2017-09-26] MEDS ORDERED: MECLIZINE HCL25 MG PO (20:42)
[2017-09-26 22:23] VITALS: BP 146/70
== END 2017-09-26 22:36 ==
LOC: ERH 16:24
PROVIDERS: Emergency Medicine
DX: R42 Dizziness and giddiness (principal); R06.02 Shortness of breath; R51 Headache
CPT/HCPCS: 93005; 93010; 96374; 96375; J2405